=== PATIENT | male | born 2000 ===

== ENCOUNTER 2025-03-07 13:26 | Inpatient (IN) | payer SELFPAY ==
--- OUTSIDE RECORDS SUMMARY | 2025-03-06 17:35 | XMS_ITS | Encounter Summary ---
Author Organization [employer] Address [address] [place] [address] Care Team Providers Care Seed Analyst Name Role Phone Physician, No Pcp Primary Care Provider Unavaila ble Reason for Visit * Reason Comments Psychiatric Evaluation Encounter Details Date Type Department Care Team (Late st Contact Info) Description 03/06/2025 5:35 PM EDT - 03/07/2025 1:[address] 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 determined (CMS/HCC V24, CMS/HCC V28) (Primary Dx); Suicidal ideation Discharge Disposition: Psychiatric Hospital Social History Tobacco Use Types Packs/Day Years Used Date Smoking Tobacco: Unknown Tobacco Cessation:Counseling Given: Not Answered Sex and Gender Information Value Date Recorded Sex Assigned at Not on file Legal Sex Male 5:21 PM EDT Gender Identity Not on file Sexual Orientation Not on file documented as of this encounter Last Filed Vital Signs Vital Sign Reading Time Taken Comments Blood Pressure 94/54 03/07/2025 6:16 AM EDT Pulse 58 03/07/2025 6:16 AM EDT Temperature 36.8 C (98.2 F) 03/07/2025 6:16 AM EDT Respiratory Rate 18 03/07/2025 6:16 AM EDT Oxygen Saturation 100% 03/07/2025 6:16 AM EDT Inhaled Oxygen Concentration - - Weight 68 kg (150 lb) 03/06/2025 9:33 PM EDT Height 175.3 cm (5' 9 ) 03/06/2025 9:33 PM EDT Body Mass Index 22.15 03/06/2025 9:33 PM EDT documented in this encounter Functional Status * Calculated C-SSRS Risk Score (Lifetime/Recent) Answer Date of Assessment Author Low Risk 03/06/2025 6:28 PM EDT Freddie Diaz RN * [place] Suicide Severity Rating Scale (Screener/Recent Self-Report) Question Answer Date of Assessment Author 1. Wish to be (Past 1 Month) Yes 6:28 PM EDT Jessica Diaz RN 2. Non-Specific Active Suici brady Thoughts (Past 1 Month) Yes 03/06/2025 6:28 PM EDT Red Diaz RN 3. Active Suicidal Ideation with any Methods (Not Plan) Without Intent to Act (Past 1 Month) No 03/06/2025 6:28 PM EDT Jessica Diaz RN 4. Active Suicidal Ideation with Some Intent to Act, Without Specific Plan (Past 1 Month) No 03/06/2025 6:28 PM EDT Jessica Diaz RN 5. Active Suicidal Ideation with Specific Plan and Intent (Past 1 Month) No 03/06/2025 6:28 PM EDT Jessica Diaz RN 6. Suicidal Behavior (Lifetime) No 6:28 PM EDT Jessica Diaz RN documented as of this encounter Discharge Disposition Disposition Code Departure Means Destination Comment [facility]iatric [facility] Patient [facility]. Section 12. Sent by bls documented in this encounter Progress Notes * Kristina Jesus - 03/07/2025 10:27 AM EDT BED FOUND - Patient accepted to [facility], unit M3, by Dr Romo for today 03/07/25; ETA set for 1:30pm. * Aye Vanessa MD - 03/07/2025 3:15 AM EDT Jerardo Reynolds This patient's care was signed out to me by the offgoing provider. Please see her/his note for further details regarding initial presentation, history of present illness, physical exam, and medical decision making. At time of signout, the following was pending: ED Course as of 03/07/25 0852 WedMar 07, 2025 0026 Crisis evaluated patient. Patient pending bed search. [OR] [address] Holloway: SI requesting to be killed Awaiting inpatient psych bed [EK] 0637 No acute needs during my shift. Patient's care was handed over to the oncoming provider. [EK] ED Course User Index [EK] Aye Vanessa MD [OR] Osmar Holloway MD Clinical Impressions as of 03/07/25 0852 Schizophrenia spectrum disorder with psychotic disorder type not yet determined ([facility] V24, [facility] V28) Suicidal ideation No orders to display Labs Reviewed COMPREHENSIVE METABOLIC PANEL - Abnormal Result Value Sodium 137 Potassium 3.7 Chloride 103 CO2 24 Anion Gap 10 Glucose 82 BUN 16 Creatinine 0.99 eGFR 108 BUN/Creatinine Ratio 16.2 Calcium 9.5 AST (SGOT) 36 ALT (SGPT) 81 (*) Alkaline Phosphatase 71 Total Protein 7.6 Albumin 4.2 Total Bilirubin 0.7 ACETAMINOPHEN LEVEL - Abnormal Acetaminophen Level <2.0 (*) SALICYLATE LEVEL - Abnormal Salicylate Level <1.7 (*) ETHANOL - Normal Ethanol Level 3 DRUG ABUSE SCREEN 8A PANEL, URINE - Normal Amphetamine Screen, Ur Negative Barbiturate Screen, Ur Negative Benzodiazepine Screen, Ur Negative Cocaine Screen, Ur Negative Opiate Screen, Ur Negative Cannabinoid (THC) Screen, Ur Negative Oxycodone Screen, Ur Negative Fentanyl, Ur Negative Narrative: Assay cutoffs: Amphetamines 1000 ng/mL Barbiturates 200 ng/mL Benzodiazepines 200 ng/mL Cocaine 300 ng/mL Fentanyl 1 ng/mL Opiates 300 ng/mL Oxycodone 100 ng/mL THC 50 ng/mL Semi-quantitative assay for screening purposes only. Unconfirmed screening result should not be used for non-medical purposes. *ALTERNATE METHOD CONFIRMATION DONE UPON REQUEST ONLY* BUPRENORPHINE SCREEN, URINE - Normal Buprenorphine Screen Urine Negative Narrative: Assay cutoff 5 ng/mL Semi-quantitative assay for screening purposes only. Unconfirmed screening result should not be used for non-medical purposes. *ALTERNATE METHOD CONFIRMATION DONE UPON REQUEST ONLY* PHENCYCLIDINE, URINE - Normal PCP Scrn, Ur Negative METHADONE SCREEN, URINE - Normal Methadone Screen, Urine Negative CBC AND DIFFERENTIAL Narrative: The following orders were created for panel order CBC and differential. Procedure Abnormality Status --------- ------ CBC auto differential[[id number]] Final result Please view results for these tests on the individual orders. CBC WITH AUTO DIFFERENTIAL WBC 4.8 RBC 4.70 Hemoglobin 14.0 Hematocrit 42.2 MCV 89.0 MCH 29.5 MCHC 33.2 RDW 11.5 Platelets 303 MPV 9.9 NRBC 0.0 NRBC Absolute 0.00 Neutrophils Relative 60.8 Lymphocytes Relative 29.2 Monocytes Relative 9.0 Eosinophils Relative 0.6 Basophils Relative 0.2 Immature Granulocytes Relative 0.2 Neutrophils Absolute 2.91 Lymphocytes Absolute 1.40 Monocytes Absolute 0.43 Eosinophils Absolute 0.03 Basophils Absolute 0.01 Immature Granulocytes Absolute 0.01 Clinical Impression(s): Final diagnoses: [F29] Schizophrenia spectrum disorder with psychotic disorder type not yet determined ([facility] V24,[facility] V28) [R45.851] Suicidal ideation Send to Specialty Department Previous Medications No medications on file ED Medication Administration from 03/06/2025 1721 to 03/07/2025 0852 Date/Time Order Dose Route Action Action by 03/06/20259 EDT hydrOXYzine pamoate (VISTARIL) capsule 25 mg 25 mg oral Given Freddie Diaz 03/06/2025 2239 EDT melatonin tablet 3 mg 3 mg oral Given Freddie Diaz 03/07/2025 0017 EDT acetaminophen (TYLENOL) tablet 1,000 mg 1,000 mg oral Given Freddie Bravo * Jessica Diaz RN - 03/06/2025 9:50 PM EDT Per medication hx, no active meds. Patient also denies any active medications. * Jessica Diaz RN - 03/06/2025 6:25 PM EDT Pt processed according to policy, belongings secured. Pt stating if I lie to the crisis people will it get me out of here sooner? Education provided regarding the importance of sharing accurate information in order to provide theappropriate care. Pt states he was in an argument with someone, and upon the police arriving he gave them a note thatsaid shoot me. Patient providing minimal information during assessment, states I don't really care what happens to me. Sitter at watch. * Myrna Perry RN - 03/06/2025 5:35 PM EDT Pt BIBA from home after having an argument at home with father, whom called the police. Per EMS, ptwrote on piece of paper to police justice to just shoot me. Pt came willingly to [facility]. [facility], ambulatory. * Osmar Holloway MD - 03/06/2025 5:21 PM EDT HPI Chief Complaint Patient presents with Psychiatric Evaluation 25-year-old male with a past medical history of depression presenting with suicidal ideation. Patient endorses feeling as though he does not want to wake up tomorrow. Patient endorsed to myself, and also requested some form of medication that he can inject inside of him to end his life. Patient endorses an incident at home earlier, that required the police to come. Patient endorses that he would like to be shot in the head. Patient denies any fever, chills, chest pain, abdominal pain, back pain, urinary or bowel symptoms, numbness or weakness in the upper or lower extremities. Review of systems otherwise negative. History provided by: Patient No data recorded Patient History Medical History[1] Surgical History[2] Family History[3] Social History Tobacco Use Smoking status: Unknown Smokeless tobacco: Not on file Substance Use Topics Alcohol use: Not on file Drug use: Defer Review of Systems Review of Systems Constitutional: Negative for chills and fever. HENT: Negative for rhinorrhea and sore throat. Eyes: Negative for pain. Respiratory: Negative for cough, choking, chest tightness, shortness of breath and wheezing. Cardiovascular: Negative for chest pain and leg swelling. Gastrointestinal: Negative for abdominal pain, constipation, diarrhea, nausea and vomiting. Genitourinary: Negative for dysuria, flank pain and urgency. Musculoskeletal: Negative for back pain and neck pain. Skin: Negative for rash. Neurological: Negative for dizziness, weakness, light-headedness, numbness and headaches. Psychiatric/Behavioral: Positive for suicidal ideas. Negative for behavioral problems. Physical Exam ED Triage Vitals [03/06/25 1741] Temp Heart Rate Resp BP 36.7 ??C (98.1 ??F) 75 18 (!) 147/77 SpO2 Temp Source Heart Rate Source Patient Position 99 % Oral Monitor Lying BP Location FiO2 (%) Right arm -- Physical Exam Constitutional: Appearance: Normal appearance. HENT: Head: Normocephalic. Mouth/Throat: Mouth: Mucous membranes are moist. Eyes: Extraocular Movements: Extraocular movements intact. Pupils: Pupils are equal, round, and reactive to light. Cardiovascular: Rate and Rhythm: Normal rate. Pulmonary: Effort: Pulmonary effort is normal. Breath sounds: Normal breath sounds. Abdominal: General: Abdomen is flat. There is no distension. Palpations: Abdomen is soft. There is no mass. Tenderness: There is no abdominal tenderness. There is no guarding or rebound. Musculoskeletal: General: No swelling, tenderness, deformity or signs of injury. Normal range of motion. Cervical back: Normal range of motion. Skin: General: Skin is warm. Capillary Refill: Capillary refill takes less than 2 seconds. Neurological: General: No focal deficit present. Mental Status: He is alert and oriented to person, place, and time. Psychiatric: Mood and Affect: Mood normal. ED Course & MDM ED Course as of 03/07/25 1635 WedMar 07, 2025 0026 Crisis evaluated patient. Patient pending bed search. [OR] [address] Holloway: SI requesting to be killed Awaiting inpatient psych bed [EK] 0637 No acute needs during my shift. Patient's care was handed over to the oncoming provider. [EK] ED Course User Index [EK] Aye Vanessa MD [OR] Osmar Holloway MD Clinical Impressions as of 03/07/25 1635 Schizophrenia spectrum disorder with psychotic disorder type not yet determined (CMS/HCC V24, CMS/[facility] V28) Suicidal ideation Medical Decision Making Based on this clinical presentation, this is concerning for suicidal ideation. Patient denies any symptomatic complaints, vital stable, and has clear and thoughtful speech. Patient is alert and oriented, and shows capacity. Patient CBC within normal limits. CMP within normal limits. Drug screen negative. Ethanol negative. Salicylate negative. Tylenol negative. Patient pending crisis evaluation. Procedures Osmar Holloway MD 03/06/251925 [1] History reviewed. No pertinent past medical history. [2] History reviewed. No pertinent surgical history. [3] No family history on file. 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 Behavioral Health Services - Crisis Assessment Important times Time of arrival: 03/06/25 1721 Time of referral: 03/06/25 192 Time of readiness: 03/06/25 1947 Time assessment started: 03/06/252099 Time of disposition: 03/06/252199 Location: [facility] ED Consulted case with: Rima Viera LCSW Insurance information: Insurance: No Insurance Eligibility Verified by: JOSE Reis Reason for Consultation / Presenting Problem: Jerardo Reynolds is being seen today for a consultive service at the request of Osmar Holloway MD to assess risk and identify appropriate level of care. Patient is a 25 year old Male being assessed by Behavioral Health due to suicide ideation with a plan to get shot in the head. Patient reports that he want to end it all, he no longer want to be here. The patient reports that he had a verbal altercation with his father over a argueta that was left in the sink and as the altercation continues his father called the police to intervene. When the police arrived at his home, the patient reports that he asked the police to shoot him in the head and make it look like an accident. Patient was observed laughing various point throughoutthe assessment. The patient reports that he lives at home with his parents and 2 younger siblings ages 23 and 10. The patient reports that for the past 6 years his life have been a waste. He ran awayfrom home multiple times with no money or plan. He reports that in the past year he has applied forover 4,000 jobs but he never followed up with them. Patient reports that he missed his court date last for an aggravated assault charge. Patient reports that he has a history of mental health disorders and listed them all. At the time of assessment the patient continues to endorse suicide with a plan to get a high dose of sedatives or anesthesia any thing that will be effective because he don't want to be a vegetable . Patient reports that he does not have a girlfriend and no children. He also reports that he believed he was sterilized in middle school. Patient reports his home address as [address] [place] [address] and a contact phone number [phone]. Patient refused to provide his parent name and contact information. Phone call to [facility] Based on a phone call to [facility] the patient was last seen and assessed by their office in November 2024. In November the patient was seen due to inappropriate behavior in the home. He was diagnosed with schizophrenia by [facility]. Today co-response responded to the patient's residence. [facility] will fax over the assessme nt/interaction from today. The [facility] assessment found that the patient appears to be struggling with emotional and behavioral dysregulation secondary to discord with his father exacerbated by lack ofadaptive coping skills, lack of distress tolerance skills, and lack of current providers to work onexpanding his repertoire of adaptive coping skills. History of Present Illness: Jerardo is a 25 y.o. male with Chief Complaint Patient presents with Psychiatric Evaluation Social/Educational History: Guardian - if Yes, provide contact information: n/a [place] Status: n/a State Agency Involvement: n/a Aayush's Order: n/a Marital Status: Single Alternative Placement Details: None Reported Living Situation for patient: Parent/Guardian Household Members/Age: parents, mother, father, and 2 brothers Friendships/Family/Social Peer Support/Relationships: None Reported Highest level of education: Patient reports completing courses at [employer], [employer] and [employer]. Comments (Include Learning Needs): None Reported Occupation: Currently unemployed Employment/Extracurricular Activities/Hobbies: Unemployed Limitations of Daily Activities: None Reported Strengths/Supports: Patient can advocated for his needs. Collaterals, contact information, and engagement level: Therapist: None Reported Psychiatrist: None Reported PCP: None Reported Family: None Reported Other: None Reported Mental Status Speech: WNL Eye Contact: WNL Motor Activity: WNL Mood: WNL Affect: Appropriate Sleep: Poor Appetite: Poor Memory: WNL Attention / Concentration: WNL Behavior: Cooperative and Restless Appearance: Hallucinations: None Delusions: None Thought Content: WNL SI: Presence HI: Denied Thought Process: WNL Orientation Impairment: None Insight: WNL Judgment: WNL Impulse Control: WNL Substance Use History (Including family history): Cannabinoid Utox Results: Negative Substance Use Treatment History: None Reported Mental Health Treatment History: Outpatient Mental Health Treatment: Patient was assessed by [facility] in November 2024 Previous or Current Psychological Diagnosis: Schizophrenia Prior Psychiatric Hospitalizations/Residential Treatment Facilities: Patient reports being inpatient in [place], [place] Other Comments Regarding Mental Health Treatment History: Patient reports Mental Health Concerns in Family: Patient reports that his father probably has mental illness but was never diagnosed. Trauma History: None Reported Medications: Scheduled Meds: MEDSSCHEDULED[1] Continuous Infusions: MEDSCONTINUOUS[2] PRN Meds: MEDSPRN[3] None Reported Risk Assessment: Self-Harm: None Suicidal Behavior: Ideation and Plan Homicidal Behavior: None Physical Assault: None Physical Aggression: None Property Damage: None Verbal Aggression: None Family history of suicide: None Reported Protective Factors: Patient is help seeking Patient has access to community resources - [facility] Patient has safe living environment Patient lives with parents Risk Factors: Patient has limited coping skills Patient endorsed suicide with plan to get shot by police Patient has history of mental health illness Patient is not currently being treated for Schizophrenia Patient's insurance in inactive Suicide Risk: Based on patient's history and current presentation, their level of risk for intentional lethal harm is considered High Safety Plan Completed: yes Patient will be going inpatient for safety. Interventions: Safety assessment, Motivational interviewing, active listening, empathetic listening, brief counseling, psychoeducation, support, safety planning Response to interventions: Patient responded well to the intervention; he was calm, cooperative, and welcomed additional help. DSM-5TR Diagnosis: F29 Unspecified Schizophrenia Spectrum and other Psychotic Disorder Plan: Based on the above information it is my clinical opinion that, the patient would benefit from a involuntary inpatient psychiatric admission for safety and containment, mood stabilization, psychiatricmedication evaluation, diagnostic clarification, an opportunity to engage in a therapeutic treatment through individual and group counseling to develop adaptive coping/symptoms management skills and assistance in accessing community resources at discharge. Recommendations were discussed with requesting provider. It was a pleasure to assist Jerardo Housermolly here at [facility]. This report is written and finalized by: Fitz Mathis LCSW Behavioral Health Specialist [facility] (Tel): [phone] / : [phone] [1] melatonin, 3 mg, oral, Once [2] [3] documented in this encounter Plan of Treatment Not on file documented as of this encounter Procedures Procedure Name Priority Date/Time Associated Diagnosis Comments CBC WITH AUTO DIFFERENTIAL STAT 03/06/2025 6:23 PM EDT CBC AND DIFFERENTIAL STAT 03/06/2025 6:23 PM EDT ETHANOL STAT 03/06/2025 6:23 PM EDT ACETAMINOPHEN LEVEL STAT 03/06/2025 6 :23 PM EDT SALICYLATE LEVEL STAT 03/06/2025 6:23 PM EDT COMPREHENSIVE METABOLIC PANEL STAT 03/06/2025 6:23 PM EDT DRUG ABUSE SCREEN 8A PANEL, URINE STAT 03/06/2025 6:07 PM EDT BUPRENORPHINE SCREEN, URINE STAT 03/06/2025 6:07 PM EDT METHADONE SCREEN, URINE STAT 03/06/2025 6:07 PM EDT PHENCYCLIDINE, URINE STAT 03/06/2025 6:07 PM EDT documented in this encounter Results * CBC auto differential (03/06/2025 6:23 PM EDT) [facility] WBC 4.8 4.8 - 10.8 K/mcL LAB HEMETOLOGY METHOD 03/06/2025 6:49 PM EDT [facility] RBC 4.70 4.50 - 5.50 M/mcL LAB HEMETOLOGY METHOD 03/06/2025 6:49 PM EDT [facility] Hemoglobin 14.0 13.5 - 17.5 g/dL LAB HEMETOLOGY METHOD 03/06/2025 6:49 PM EDT [facility] Hematocrit 42.2 42.0 - 54.0 % LAB HEMETOLOGY METHOD 03/06/2025 6:49 PM EDT [facility] MCV 89.0 79.0 - 98.0 FL LAB HEMETOLOGY METHOD 03/06/2025 6:49 PM EDT [facility] MCH 29.5 27.0 - 32.0 pcg LAB HEMETOLOGY METHOD 03/06/2025 6:49 PM EDT [facility] MCHC 33.2 32.0 - 37.0 g/dL LAB HEMETOLOGY METHOD 03/06/2025 6:49 PM EDT [facility] RDW 11.5 11.0 - 15.0 % LAB HEMETOLOGY METHOD 03/06/2025 6:49 PM EDT [facility] Platelets 303 130 - 400 K/mcL LAB HEMETOLOGY METHOD 03/06/2025 6:49 PM EDT [facility] MPV 9.9 7.0 - 11.0 FL LAB HEMETOLOGY METHOD 03/06/2025 6:49 PM EDT [facility] NRBC 0.0 <1.0 % LAB HEMETOLOGY METHOD 03/06/2025 6:49 PM EDT [facility] NRBC Absolute 0.00 <0.10 K/mcL LAB HEMETOLOGY METHOD 03/06/2025 6:49 PM EDT [facility] Neutrophils Relative 60.8 % LAB HEMETOLOGY METHOD 03/06/2025 6:49 PM EDT [facility] Lymphocytes Relative 29.2 % [facility]/06[facility] Monocytes Relative 9.0 % [facility]EM[facility]OLOGY [facility] 03/06[facility]25 6:[facility] Eosinophils Relative 0.6 % LAB HEMETOLOGY METHOD 03/06/2025 6:[facility] Basophils Relative 0.2 % LAB HEMETOLOGY METHOD 03/06/2025 6:49 PM [facility] Immature Granulocytes Relative 0.2 % LAB HEMETOLOGY METHOD 03/06/2025 6:[facility] Neutrophils Absolute 2.91 1.50 - 7.00 K/mcL LAB HEMETOLOGY METHOD 03/06/2025 6:49 PM EDT [facility] Lymphocytes Absolute 1.40 1.00 - 5.00 K/mcL LAB HEMETOLOGY METHOD 03/06/2025 6:[facility] Monocytes Absolute 0.43 0.20 - 1.00 K/mcL LAB HEMETOLOGY METHOD 03/06/2025 6:49 [facility] Eosinophils Absolute 0.03 0.00 - 0.50 K/mcL LAB HEMETOLOGY METHOD 03/06/2025 6:49 PM EDT [facility] Basophils Absolute 0.01 0.00 - 0.20 K/[facility] LAB HEMETOLOGY METHOD 03/06/2025 6:49 PM EDT [facility] Immature Granulocytes Absolute 0.01 0.00 - 0.03 K/[facility] LAB HEMETOLOGY METHOD 03/06/2025 6:49 PM EDT [facility] Blood Venous blood specimen / Unknown Venipuncture / Unknown 03/06/2025 6:23 PM EDT 03/06/2025 6:36 PM EDT us Osmar Holloway MD LAB BLOOD ORDERABLES Final Result Performing Organization Address [facility]/ZIP Co de Phone Number [facility] [address] [place] [address], * (ABNORMAL) Salicylate level (03/06/2025 6:23 PM EDT) Salicylate Level <1.7(L) 2.0 - 29.0 mg/dL LAB CHEMISTRY METHOD 03/06/2025 7:19 PM EDT [facility] Blood Venous blood specimen / Unknown Venipuncture / Unknown 03/06/2025 6:23 PM EDT 03/06/2025 6:36 PM EDT us Osmar Holloway MD LAB BLOOD ORDERABLES Final Result Performing Organization Address City/[facility]/ZIP Co de Phone Number [facility] [address] [place] [address], * (ABNORMAL) Acetaminophen level (03/06/2025 6:23 PM EDT) Acetaminophen Level <2.0(L) 10.0 - 30.0 mcg/mL LAB CHEMISTRY METHOD 03/06/2025 7:33 PM EDT [facility] Blood Venous blood specimen / Unknown Venipuncture / Unknown 03/06/2025 6:23 PM EDT 03/06/2025 6:36 PM EDT us Osmar Holloway MD LAB BLOOD ORDERABLES Final Result Performing Organization Address [facility]/ZIP Co de Phone Number [facility] [address] [place] [address], [place] [phone] * Ethanol (03/06/2025 6:23 PM EDT) Pathologist [facility] Ethanol Level 3 0 - 10 mg/dL LAB CHEMISTRY METHOD 03/06/2025 7:19 PM EDT [facility] Blood Venous blood specimen / Unknown Venipuncture / Unknown 03/06/2025 6:23 PM EDT 03/06/2025 6:36 PM EDT us Osmar Holloway MD LAB BLOOD ORDERABLES Final Result Performing Organization Address [facility]/ZIP Co de Phone Number [facility] [address] [place] [address], [place] [phone] * (ABNORMAL) Comprehensive metabolic panel (03/06/2025 6:23 PM EDT) Sodium 137 133 - 145 mmol/L LAB CHEMISTRY METHOD 03/06/2025 7:19 PM EDT [facility] Potassium 3.7 3.5 - 5.5 mmol/L LAB CHEMISTRY METHOD 03/06/2025 7:19 PM EDT [facility] Chloride 103 96 - 110 mmol/L LAB CHEMISTRY METHOD 03/06/2025 7:19 PM EDT [facility] CO2 24 21 - 32 mmol/L LAB CHEMISTRY METHOD 03/06/2025 7:19 PM EDT [facility] Anion Gap 10 3 - 11 LAB CHEMISTRY METHOD 03/06/2025 7:19 PM EDT [facility] Glucose 82 70 - 100 mg/dL LAB CHEMISTRY METHOD 03/06/2025 7:19 PM [facility] BUN 16 5 - 25 mg/dL LAB CHEMISTRY METHOD 03/06/2025 7:19 PM [facility] Creatinine 0.99 0.70 - 1.30 mg/dL LAB CHEMISTRY METHOD 03/06/2025 7:19 PM [facility] eGFR 108 >=60 mL/min/1. 73m2 LAB CHEMISTRY METHOD 03/06/2025 7:19 PM [facility] Comment:Calculation based on the Chronic Kidney Disease Epidemiology Collaboration (CKD-EPI) equation refit without adjustment for race. BUN/Creatinine Ratio 16.2 LAB CHEMISTRY METHOD 03/06/2025 7:19 PM [facility] Calcium 9.5 8.5 - 10.5 mg/dL LAB CHEMISTRY METHOD 03/06/2025 7:19 PM [facility] AST (SGOT) 36 10 - 42 unit/L LAB CHEMISTRY METHOD 03/06/2025 7:19 PM [facility] ALT (SGPT) 81(H) 10 - 60 unit/L LAB CHEMISTRY METHOD 03/06/2025 7:19 PM [facility] Alkaline Phosphatase 71 42 - 121 unit/L LAB CHEMISTRY METHOD 03/06/2025 7:19 PM [facility] Total Protein 7.6 6.0 - 8.0 g/dL LAB CHEMISTRY METHOD 03/06/2025 7:19 PM [facility] Albumin 4.2 3.2 - 5.0 g/dL LAB CHEMISTRY METHOD 03/06/2025 7:19 PM [facility] Total Bilirubin 0.7 0.0 - 1.4 mg/dL LAB CHEMISTRY METHOD 03/06/2025 7:19 PM [facility] Blood Venous blood specimen / Unknown Venipuncture / Unknown 03/06/2025 6:23 PM EDT 03/06/2025 6:36 PM EDT us Osmar Holloway MD LAB BLOOD ORDERABLES Final Result Performing Organization Address [facility]/ZIP Co de Phone Number [facility] [address] [place] [address], [place] [phone] * Methadone, urine (03/06/2025 6:07 PM EDT) Methadone Screen, Urine Negative Negative LAB CHEMISTRY METHOD 03/06/2025 6:55 PM EDT [facility] Comment: Assay cutoff 300 ng/mL Semi-quantitative assay for screening purposes only. Unconfirmed screening result should not be used for non-medical purposes. *ALTERNATE METHOD CONFIRMATION DONE UPON REQUEST ONLY* Urine Urine specimen obtained by clean catch procedure / Unknown Non-blood Collection / Unknown 03/06/2025 6:07 PM EDT 03/06/2025 6:20 PM EDT us Osmar Holloway MD LAB URINE ORDERABLES Final Result Performing Organization Address [facility] de Phone Number [facility] [address] [place] [address], [place] [phone] * Phencyclidine, urine (03/06/2025 6:07 PM EDT) PCP Scrn, Ur Negative Negative LAB CHEMISTRY METHOD 03/06/2025 6:55 PM EDT [facility] Comment: Assay cutoff 25 ng/mL Semi-quantitative assay for screening purposes only. Unconfirmed screening result should not be used for non-medical purposes. *ALTERNATE METHOD CONFIRMATION DONE UPON REQUEST ONLY* Urine Urine specimen obtained by clean catch procedure / Unknown Non-blood Collection / Unknown 03/06/2025 6:07 PM EDT 03/06/2025 6:20 PM EDT us Osmar Holloway MD LAB URINE ORDERABLES Final Result Performing Organization Address [facility]/ZIP Co de Phone Number [facility] [address] [place] [address], [place] [phone] * Buprenorphine screen, urine (03/06/2025 6:07 PM EDT) Buprenorphine Screen Urine Negative Negative LAB CHEMISTRY METHOD 03/06/2025 6:55 PM EDT [facility] Urine Urine specimen obtained by clean catch procedure / Unknown Non-blood Collection / Unknown 03/06/2025 6:07 PM EDT 03/06/2025 6:20 PM EDT Narrative [facility] - 03/06/2025 6:55 PM EDT Assay cutoff 5 ng/mL Semi-quantitative assay for screening purposes only. Unconfirmed screening result should not be used for non-medical purposes. *ALTERNATE METHOD CONFIRMATION DONE UPON REQUEST ONLY* Osmar Holloway MD LAB URINE ORDERABLES Final Result Performing Organization Address [facility] Co de Phone Number [facility] [address] [place] [address], [place] [phone] * Drug abuse screen 8a panel, urine (03/06/2025 6:07 PM EDT) [facility] Amphetamine Screen, Ur Negative Negative LAB CHEMISTRY METHOD 03/06/2025 6:55 PM EDT [facility] Comment:Certain OTC medicati ons containing ephedrine, phenylephrine, pseudoephedrine and phenylpropanolamine can cause false positive results. Barbiturate Screen, Ur Negative Negative LAB CHEMISTRY METHOD 03/06/2025 6:55 PM EDT [facility] Benzodiazepine Screen, Ur Negative Negative LAB CHEMISTRY METHOD 03/06/2025 6:55 PM EDT [facility] Cocaine Screen, Ur Negative Negative LAB CHEMISTRY METHOD 03/06/2025 6:55 PM EDT [facility] Opiate Screen, Ur Negative Negative LAB CHEMISTRY METHOD 03/06/2025 6:55 PM EDT [facility] Cannabinoid (THC) Screen, Ur Negative Negative LAB CHEMISTRY METHOD 03/06/2025 6:55 PM EDT [facility] Comment:Specimens from patie nts taking pantoprazole sodium (Protonix) have been shown to produce false positive results. Oxycodone Screen, Ur Negative Negative LAB CHEMISTRY METHOD 03/06/2025 6:55 PM EDT [facility] Fentanyl, Ur Negative Negative LAB CHEMISTRY METHOD 03/06/2025 6:55 PM EDT [facility] Urine Urine specimen obtained by clean catch procedure / Unknown Non-blood Collection / Unknown 03/06/2025 6:07 PM EDT 03/06/2025 6:20 PM EDT Narrative [facility] - 03/06/2025 6:55 PM EDT Assay cutoffs: Amphetamines 1000 ng/mL Barbiturates 200 ng/mL Benzodiazepines 200 ng/mL Cocaine 300 ng/mL Fentanyl 1 ng/mL Opiates 300 ng/mL Oxycodone 100 ng/mL THC 50 ng/mL Semi-quantitative assay for screening purposes only. Unconfirmed screening result should not be used for non-medical purposes. 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 V24, [facility] V28)- Primary Suicidal ideation documented in this encounter Administered Medications Inactive Administered Medications - up to 3 most recent administrations Medication Order MAR Action Action Date Dose Rate Site acetaminophen (TYLENOL) tablet 1,000 mg 1,000 mg, oral, Once, On Wed03/06/25 at 2313, For 1 dose Given 03/07/2025 12:17 AM EDT 1,000 mg hydrOXYzine pamoate (VISTARIL) capsule 25 mg 25 mg, oral, Once, On Wed03/06/25 at 7, For 1 dose Given 03/06/2025 9:29 PM EDT 25 mg melatonin tablet 3 mg 3 mg, oral, Once, On Wed03/06/25 at 2150, For 1 dose Given 03/06/2025 10:39 PM EDT 3 mg documented in this encounter Active and Recently Administered Medications Times are shown in EDT. Scheduled Medication Order 03/05/2025 03/06/2025 03/07/2025 acetaminophen (TYLENOL) tablet 1,000 mg (COMPLETED) 1,000 mg, oral, Once, On Wed03/06/25 at 2313, For 1 dose 0017 (Given - Provid er: Emily Bravo RN) hydrOXYzine pamoate (VISTARIL) capsule 25 mg (COMPLETED) 25 mg, oral, Once, On Wed03/06/25 at 2036, For 1 dose 2128 (Given - Provider: Jessica Diaz RN) melatonin tablet 3 mg (COMPLETED) 3 mg, oral, Once, On Wed03/06/25 at 2150, For 1 dose 2238 (Given - Provider: Jessica Diaz RN) documented in this encounter Orders Consult Count Last Ordered Date First Orde red Date IP CONSULT TO BUILDING CONSTRUCTION TEACHER 1 03/06/2025 documented in this encounter Care Teams Seed Analyst Relationship Specialty Start Date End Date Physician, No Pcp PCP - General 03/06/25 documented as of this encounter
[2025-03-07 15:20] VITALS: BP 124/58; PULSE 84; RESP 16; TEMP 36.6
--- OUTSIDE RECORDS SUMMARY | 2025-03-07 17:08 | XMS_ITS | Clinical Summary ---
Author Organization [facility] Address [address] [place] [address] Phone Care Team Providers Care Heat Plant Specialist Name Role Phone Physician, No Pcp Primary Care Provider Unavaila ble Allergies No known active allergies Medications No known medications Encounters Date Type Department Care Team Description 03/06/2025 5:35 PM EDT - 03/07/2025 1:[address] [facility] [address] [place] [address] Osmar Holloway MD Kokkinos, Erika, MD Wyman, Tim, MD Schizophrenia spectrum disorder with psychotic disorder type not yet determined ([facility] V24, [facility] V28) (Primary Dx); Suicidal ideation Discharge Disposition: [facility] from Last 3 Months Social History Tobacco Use Types Packs/Day Years Used Date Smoking Tobacco: Unknown Tobacco Cessation:Counseling Given: Not Answered Sex and Gender Information Value Date Recorded Sex Assigned at Not on file Legal Sex Male 5:21 PM EDT Gender Identity Not on file Sexual Orientation Not on file Obstetrics History Last Filed Vital Signs Vital Sign Reading [...] Mass Index 22.15 03/06/2025 9:33 PM EDT Plan of Treatment Health Maintenance Due Date Last Done Comments Hepatitis B Vaccines (1 of 3 - 19+ 3-dose series) 2018 Depression Screening 05/24/2024 COVID-19 Vaccine (3 - 2024- season) 2025 10/07/2020, 09/09/2020 Influenza Vaccine (#1) 2025 04/16/2017 HIV Screening 03/06/2025 Hepatitis C Screening 03/06/2025 Social Influencers of Health Screening 03/06/2025 DTaP,Tdap,and Td Vaccines (8 - Td or Tdap) 10/29/2030 10/29/2020, 01/28/2010, 02/23/2003, Additional history exists RSV Immunization Adult Patients (1 - 1-dose 75+ series) 2074 HIB Vaccines Completed 05/03/2000, 07/22, 1999, Additional history exists IPV Vaccines Completed 02/23/2003, 10/1999, 1999, Additional history exists MMR Vaccines Completed 02/23/2003, 01/28/2000 Hepatitis A Vaccines Completed 04/06/2013, 02/12/20 12 Meningococcal ACWY Vaccine Completed 05/07/2016, Varicella Vaccines Completed 05/26/2016, 0 01/17/2007, 01/28/2000 HPV Vaccines Completed 11/05/2016, 06/25, 05/07/2016 Meningococcal B Vaccine Aged Out No l onger eligible based on patient's age to complete this topic Pneumococcal Vaccine: Pediatrics (0 to 5 Years) and At-Risk Patients (6 to 49 Years) Aged Out No longer eligible based on patient's age to complete this topic RSV Immunization Patients Under 20 months Aged Out No longer eligible based on patient's age to complete this topic Procedures Procedure Name Priority Date/Time Associated Diagnosis Comments CBC WITH AUTO DIFFERENTIAL STAT 03/06/2025 6:23 PM EDT SALICYLATE LEVEL STAT 03/06/2025 6:23 PM EDT ACETAMINOPHEN LEVEL STAT 03/06/2025 6 :23 PM EDT ETHANOL STAT 03/06/2025 6:23 PM EDT COMPREHENSIVE METABOLIC PANEL STAT 03/06/2025 6:23 PM EDT CBC AND DIFFERENTIAL STAT 03/06/2025 6:23 PM EDT METHADONE SCREEN, URINE STAT 03/06/2025 6:07 PM EDT PHENCYCLIDINE, URINE STAT 03/06/2025 6:07 PM EDT BUPRENORPHINE SCREEN, URINE STAT 03/06/2025 6:07 PM EDT DRUG ABUSE SCREEN 8A PANEL, URINE STAT 03/06/2025 6:07 PM EDT from Last 3 Months Results * CBC auto differential (03/06/2025 6:23 PM EDT) [facility] WBC 4.8 4.8 - 10.8 K/mcL LAB HEMETOLOGY METHOD 03/06/2025 6:49 PM EDT [facility] RBC 4.70 4.50 - 5.50 M/mcL LAB HEMETOLOGY METHOD 03/06/2025 6:49 PM EDT [facility] Hemoglobin 14.0 13.5 - 17.5 g/dL LAB HEMETOLOGY METHOD 03/06/2025 6:49 PM EDT [facility] Hematocrit 42.2 42.0 - 54.0 % LAB HEMETOLOGY METHOD 03/06/2025 6:49 PM EDT [facility] MCV 89.0 79.0 - 98.0 FL LAB HEMETOLOGY METHOD 03/06/2025 6:49 PM EDT [facility] MCH 29.5 27.0 - 32.0 pcg LAB HEMETOLOGY METHOD 03/06/2025 6:49 PM EDT [facility] MCHC 33.2 32.0 - 37.0 g/dL LAB HEMETOLOGY METHOD 03/06/2025 6:49 PM EDT [facility] RDW 11.5 11.0 - 15.0 % LAB HEMETOLOGY METHOD 03/06/2025 6:49 PM EDT [facility] Platelets 303 130 - 400 K/mcL LAB HEMETOLOGY METHOD 03/06/2025 6:49 PM EDT [facility] MPV 9.9 7.0 - 11.0 FL LAB HEMETOLOGY METHOD 03/06/2025 6:49 PM EDT [facility] NRBC 0.0 <1.0 % LAB HEMETOLOGY METHOD 03/06/2025 6:49 PM EDT [facility] NRBC Absolute 0.00 <0.10 K/mcL LAB HEMETOLOGY METHOD 03/06[facility]25 [facility] Neutrophils Relative 60.8 % LAB HEMETOLOGY METHOD 03/06/2025 6:49 PM EDT [facility] Lymphocytes Relative 29.2 % LAB HEMETOLOGY METHOD 03/06/2025 6:49 PM EDT [facility] Monocytes Relative 9.0 % LAB HEMETOLOGY METHOD 03/06[facility]2025 6[facility] Eosinophils Relative 0.6 % LAB HEMETOLOGY METHOD 03/06/2025 6:49 PM EDT [facility] Basophils Relative 0.2 % LAB HEMETOLOGY METHOD 03/06/2025 6:49 PM EDT [facility] Immature Granulocytes Relative 0.2 % LAB HEMETOLOGY METHOD 03/06/2025 6:49 PM EDT [facility] Neutrophils Absolute 2.91 1.50 - 7.00 K/mcL LAB HEMETOLOGY METHOD 03/06/2025 6:49 PM EDT [facility] Lymphocytes Absolute 1.40 1.00 - 5.00 K/mcL LAB HEMETOLOGY METHOD 03/06/2025 6:49 PM EDT [facility] Monocytes Absolute 0.43 0.20 - 1.00 K/[facility] LAB HEMETOLOGY METHOD 03/06/2025 6:49 PM EDT [facility] Eosinophils Absolute 0.03 0.00 - 0.50 K/[facility] HEMETOLOGY METHOD 03/06/2025 6:49 PM EDT [facility] Basophils Absolute 0.01 0.00 - 0.20 K/[facility] HEMETOLOGY METHOD 03/06/2025 6:49 PM EDT [facility] Immature Granulocytes Absolute 0.01 0.00 - 0.03 K/[facility] HEMETOLOGY METHOD 03/06/2025 6:49 PM EDT [facility] Blood Venous blood specimen / Unknown Venipuncture / Unknown 03/06/2025 6:23 PM EDT 03/06/2025 6:36 PM EDT us Osmar Holloway MD LAB BLOOD ORDERABLES Final Result [facility] [address] [place] [address], [place] [phone] * Ethanol (03/06/2025 6:23 PM EDT) Ethanol Level 3 0 - 10 mg/dL LAB CHEMISTRY METHOD 03/06/2025 7:19 PM EDT [facility] Blood Venous blood specimen / Unknown Venipuncture / Unknown 03/06/2025 6:23 PM EDT 03/06/2025 6:36 PM EDT us Osmar Holloway MD LAB BLOOD ORDERABLES Final Result [facility] [address] [place] [address], [place] [phone] * (ABNORMAL) Acetaminophen level (03/06/2025 6:23 PM EDT) Acetaminophen Level <2.0(L) 10.0 - 30.0 mcg/mL LAB CHEMISTRY METHOD 03/06/2025 7:33 PM EDT [facility] Blood Venous blood specimen / Unknown Venipuncture / Unknown 03/06/2025 6:23 PM EDT 03/06/2025 6:36 PM EDT us Osmar Holloway MD LAB BLOOD ORDERABLES Final Result Performing Organization Address City/[facility]/ZIP Co de Phone Number [facility] [address] [place] [address], [place] [phone] * (ABNORMAL) Salicylate level (03/06/2025 6:23 PM EDT) Salicylate Level <1.7(L) 2.0 - 29.0 mg/dL LAB CHEMISTRY METHOD 03/06/2025 7:19 PM EDT [facility] Blood Venous blood specimen / Unknown Venipuncture / Unknown 03/06/2025 6:23 PM EDT 03/06/2025 6:36 PM EDT us Osmar Holloway MD LAB BLOOD ORDERABLES Final Result Performing Organization Address City/[facility]/ZIP Co de Phone Number [facility] [address] [place] [address], [place] [phone] * (ABNORMAL) Comprehensive metabolic panel (03/06/2025 6:23 PM EDT) Sodium 137 133 - 145 mmol/L LAB CHEMISTRY METHOD 03/06/2025 7:19 PM EDT [facility] Potassium 3.7 3.5 - 5.5 mmol/L LAB CHEMISTRY METHOD 03/06/2025 7:19 PM EDT [facility] Chloride 103 96 - 110 mmol/L LAB CHEMISTRY METHOD 03/06/2025 7:19 PM [facility] CO2 24 21 - 32 mmol/L LAB CHEMISTRY METHOD 03/06/2025 7:19 PM [facility] Anion Gap 10 3 - 11 LAB CHEMISTRY METHOD 03/06/2025 7:19 PM [facility] Glucose 82 70 - 100 mg/dL LAB CHEMISTRY METHOD 03/06/2025 7:19 PM [facility] BUN 16 5 - 25 mg/dL LAB CHEMISTRY METHOD 03/06/2025 7:19 PM [facility] Creatinine 0.99 0.70 - 1.30 mg/dL LAB CHEMISTRY METHOD 03/06/2025 7:19 PM [facility] eGFR 108 >=60 mL/min/1. 73m2 LAB CHEMISTRY METHOD 03/06/2025 7:19 PM [facility] Comment:Calculation based on the Chronic Kidney Disease Epidemiology Collaboration (CKD-EPI) equation refit without adjustment for race. BUN/Creatinine Ratio 16.2 LAB CHEMISTRY METHOD 03/06/2025 7:19 PM [facility] Calcium 9.5 8.5 - 10.5 mg/dL LAB CHEMISTRY METHOD 03/06/2025 7:19 PM [facility] AST (SGOT) 36 10 - 42 unit/L LAB CHEMISTRY METHOD 03/06/2025 7:19 PM [facility] ALT (SGPT) 81(H) 10 - 60 unit/L LAB CHEMISTRY METHOD 03/06/2025 7:19 PM [facility] Alkaline Phosphatase 71 42 - 121 unit/L LAB CHEMISTRY METHOD 03/06/2025 7:19 PM [facility] Total Protein 7.6 6.0 - 8.0 g/dL LAB CHEMISTRY METHOD 03/06/2025 7:19 PM [facility] Albumin 4.2 3.2 - 5.0 g/dL LAB CHEMISTRY METHOD 03/06/2025 7:19 PM EDT [facility] Total Bilirubin 0.7 0.0 - 1.4 mg/dL LAB CHEMISTRY METHOD 03/06/2025 7:19 PM EDT [facility] Blood Venous blood specimen / Unknown Venipuncture / Unknown 03/06/2025 6:23 PM EDT 03/06/2025 6:36 PM EDT Osmar Holloway MD LAB BLOOD ORDERABLES Final Result [facility] [address] [place] [address], * Drug abuse screen 8a panel, urine (03/06/2025 6:07 PM EDT) Amphetamine Screen, Ur Negative Negative LAB CHEMISTRY METHOD 03/06/2025 6:55 PM EDT [facility] Comment:Certain OTC medicati ons containing ephedrine, phenylephrine, pseudoephedrine and phenylpropanolamine can cause false positive results. Barbiturate Screen, Ur Negative Negative LAB CHEMISTRY METHOD 03/06/2025 6:55 PM EDT [facility] Benzodiazepine Screen, Ur Negative Negative LAB CHEMISTRY METHOD 03/06/2025 6:55 PM EDT [facility] Cocaine Screen, Ur Negative Negative LAB CHEMISTRY METHOD 03/06/2025 6:55 PM EDT [facility] Opiate Screen, Ur Negative Negative LAB CHEMISTRY METHOD 03/06/2025 6:55 PM EDT [facility] Cannabinoid (THC) Screen, Ur Negative Negative LAB CHEMISTRY METHOD 03/06/2025 6:55 PM [facility] Comment:Specimens from patie nts taking pantoprazole sodium (Protonix) have been shown to produce false positive results. Oxycodone Screen, Ur Negative Negative LAB CHEMISTRY METHOD 03/06/2025 6:55 PM EDT [facility] Fentanyl, Ur Negative Negative LAB CHEMISTRY METHOD 03/06/2025 6:55 PM EDT [facility] Urine Urine specimen obtained by clean catch procedure / Unknown Non-blood Collection / Unknown 03/06/2025 6:07 PM EDT 03/06/2025 6:20 PM EDT Narrative [facility] - 03/06/2025 6:55 PM EDT Assay cutoffs: Amphetamines 1000 ng/mL Barbiturates 200 ng/mL Benzodiazepines 200 ng/mL Cocaine 300 ng/mL Fentanyl 1 ng/mL Opiates 300 ng/mL Oxycodone 100 ng/mL THC 50 ng/mL Semi-quantitative assay for screening purposes only. Unconfirmed screening result should not be used for non-medical purposes. *ALTERNATE METHOD CONFIRMATION DONE UPON REQUEST ONLY* us Osmar Holloway MD LAB URINE ORDERABLES Final Result Performing Organization Address [facility] de Phone Number [facility] [address] [place] [address], [place] [phone] * Buprenorphine screen, urine (03/06/2025 6:07 PM EDT) [facility] Signature Buprenorphine Screen Urine Negative Negative LAB CHEMISTRY METHOD 03/06/2025 6:55 PM EDT [facility] Urine Urine specimen obtained by clean catch procedure / Unknown Non-blood Collection / Unknown 03/06/2025 6:07 PM EDT 03/06/2025 6:20 PM EDT Narrative [facility] - 03/06/2025 6:55 PM EDT Assay cutoff 5 ng/mL Semi-quantitative assay for screening purposes only. Unconfirmed screening result should not be used for non-medical purposes. *ALTERNATE METHOD CONFIRMATION DONE UPON REQUEST ONLY* us Osmar Holloway MD LAB URINE ORDERABLES Final Result Performing Organization Address [facility]/ZIP Co de Phone Number [facility] [address] [place] [address], [place] [phone] * Methadone, urine (03/06/2025 6:07 PM EDT) Methadone Screen, Urine Negative Negative LAB CHEMISTRY METHOD 03/06/2025 6:55 PM EDT [facility] Comment: Assay cutoff 300 ng/mL [...] URINE ORDERABLES Final Result Performing Organization Address [facility]/ZIP Co de Phone Number [facility] [address] [place] [address], [place] [phone] * Phencyclidine, urine (03/06/2025 6:07 PM EDT) PCP Scrn, Ur Negative Negative LAB CHEMISTRY METHOD 03/06/2025 6:55 PM EDT [facility] Comment: Assay cutoff 25 ng/mL [...] URINE ORDERABLES Final Result Performing Organization Address City/[facility]/ZIP Co de Phone Number [facility] [address] [place] [address], [place] [phone] from Last 3 Months Care Teams Heat Plant Specialist Relationship Specialty Start Date End Date Physician, No Pcp PCP - General 03/06/25
--- OUTSIDE RECORDS SUMMARY | 2025-03-07 17:08 | XMS_ITS | Clinical Summary ---
Author Organization [facility] Address [address] [place] [address] Care Team Providers Care Marine Engineering Teacher Name Role Phone Unavailable Primary Care Provider Unavailabl e Source Comments PLEASE NOTE, if this patient is a minor, it may be UNLAWFUL to discuss sensitive information that is contained in these records (such as FAMILY PLANNING, MENTAL HEALTH or SUBSTANCE ABUSE) with the minor patient's parent or other person without the patient's specific authorization.[facility] Immunizations Immunization Administration Dates Next Due Moderna COVID-19 Vaccine, re d cap blue label, 12+ Primary Series 10/07/2020,09/09/2020 Social History Tobacco Use Types Packs/Day Years Used Date Smoking Tobacco: Never Assessed Social Connections Answer Date Recorded Social Connections and Isolation 0 09/09/2020 Financial Resource Strain Answer Date R ecorded Financial Resource Strain 0 2020 Stress Answer Date Recorded Stress 0 09/09/2020 Physical Activity Answer Date Recorded Physical Activity 0 09/09/2020 Food Insecurity Answer Date Recorded Food 0 09/09/2020 Transportation Needs Answer Date Record ed Transportation 0 09/09/2020 Housing Stability Answer Date Recorded Housing 0 09/09/2020 Safety and Environment Answer Date Enrrique rded Safety 0 09/09/2020 Utilities Answer Date Recorded Utilities 0 09/09/2020 Employment Answer Date Recorded Employment 0 09/09/2020 Sex and Gender Information Value Date Recorded Sex Assigned at Not on file Legal Sex Male 7:25 AM PDT Gender Identity Not on file Sexual Orientation Not on file Plan of Treatment Health Maintenance Due Date Last Done Comments Anxiety Screening 1999 Hepatitis C Screening 1999 Tobacco Screening 1999 HIV Screening 2014 Hypertension Screening (#1) 2017 Imm-DTaP/Tdap/Td (1 - Tdap) 2018 Imm-Hepatitis B (1 of 3 - 19 + 3-dose series) 2018 Alcohol and Drug Screen 05/24/2024 Depression Annual Screen 05/24/2024 [id number] ( season) 2025 021, 09/09/2020 Imm-Influenza (#1) 2025 Imm-HPV Completed 11/05/2016, 06/25, 05/07/2016 [facility] [address]
--- NOTE | 2025-03-07 17:50 | PC.ADMIT ---
Jerardo is a 25 y/o czech speaking male admitted from [facility] at 1340 on a CV with a dx of Schizophrenia and depression with SI. Pt was having an argument at home when the police arrived at his home. When the police arrived the pt gave them a note that said, ? shoot me.? Pt requested medications at [facility] that he could inject and not wake up from. Pt is A&O x3. Pt presented as hopeless describing the 8 years of treatment that he had that hasn?t helped him. Pt reports AH/VH, saying, ? I have had a living shadow in my room over my shoulder. It was telling me to kill my parents last year.? Pt says that he cut his hair hoping it would make it go away. Pt says when he showers it quiets them (AH). Pt also referenced that he believes that people could transmit thoughts. His thoughts were disorganized, and nonsensical at times. Pts speech was pressured, rapid and tangential. Pt says ?my sleep is horrible, I got 1.5 hrs of sleep in the past 2 days.? Pts tox screen was negative, he reported no substance use for the past 2 years. Pt reports a good appetite with no weight loss. Pt has no acute medical concerns noted or reported. Pt placed on 15 minute safety checks.
[2025-03-07 19:40] VITALS: BP 133/73; PULSE 81; RESP 16; TEMP 37.1; O2SAT 94
--- NOTE | 2025-03-08 08:19 | P.CONHOSP_ITS ---
History of Present Illness Data of Consult Service Date: 03/08/25 Primary Care Provider: Unknown Physician HPI Reason for consult: Medical consult 25-year-old male with a past medical history of depression in schizophrenia presented to [facility] with suicidal ideation with a plan to inject himself with medication. His initial blood work revealed a CBC which was within normal limits, CMP within normal limits no evidence of kidney or renal impairment, his drug screen was negative, alcohol was negative, salicylate and Tylenol were negative. He was evaluated by crisis and deemed to be appropriate for inpatient level of care. On exam patient is sleeping but awakens and answers questions. Denies any medical concerns. Review of Systems Review of Systems: Denies any shortness of breath, chest pain, headaches, dysuria, abdominal pain or discomfort, nausea, vomiting or diarrhea. PMFSH Social History Household Members: Family Household Members Other:: mom and dad Housing: House Do you presently have visiting nurse or other home services: No Patient Tobacco Use Status: Former Tobacco user Tobacco use type: Smokeless Tobacco Smoked in Last 30 Days: No e-Cigarette/Vaping Use: Former Use Patient Interested in Nicotine Replacement: No Patient Given Instructions on How to Stop Smoking: No Second Hand Smoke Exposure: No Currently Displaying Signs/Symptoms of Drug Intoxication Withdrawal: No Have you been hit, kicked, punched, or otherwise hurt by someone within the past year? If so, by whom?: No Do you feel safe in your current relationship?: No Current Relationship Is there a partner from a previous relationship who is making you feel unsafe now?: No Are you made to feel afraid or neglected: No Advance Directives: No Advance Directives Information Provided: Yes Do you have thoughts of harming others: None Do you have a plan to hurt others: No Plan Recently lost weight without trying: No How much weight loss: Not applicable Nutrition Risks: No Nutritional Risk Poor oral hygiene: No service: No Sexual orientation: Straight/Heterosexual Meds Allergies Allergy/AdvReac Type Severity Reaction Status Date / Time No Known Allergies Allergy Verified 03/07/25 13:55 Active Medications: Current Medications Acetaminophen (Acetaminophen 325 Mg Tablet) 650 mg PO Q6H PRN PRN Reason: Headache/Pain, Scale 1-10 Al Hydroxide/Mg Hydroxide (Magnesium Hydrox/Alum Hydrox 30 Ml Oral.Susp) 30 ml PO Q6H PRN PRN Reason: Heartburn/Nausea Aripiprazole (Aripiprazole 5 Mg Tablet) 5 mg PO BEDTIME SYDNI Last Admin: 03/07/25 20:09 Dose: 5 mg Hydroxyzine HCl (Hydroxyzine Hcl 25 Mg Tablet) 25 mg PO Q6H PRN PRN Reason: mild anxiety Last Admin: 03/07/25 20:09 Dose: 25 mg Ibuprofen (Ibuprofen 800 Mg Tablet) 800 mg PO Q8H PRN PRN Reason: back pain Magnesium Hydroxide (Milk Of Magnesia 30 Ml Oral.Susp) 30 ml PO DAILY PRN PRN Reason: Constipation Nicotine Polacrilex (Nicotine Polacrilex 2 Mg Gum) 4 mg BUCCAL Q2H PRN PRN Reason: Nicotine Cravings Last Admin: 03/07/25 20:15 Dose: 4 mg Olanzapine (Olanzapine 5 Mg Tablet) 5 mg PO Q4H PRN PRN Reason: agitation Last Admin: 03/07/25 20:09 Dose: 5 mg Trazodone HCl (Trazodone Hcl 50 Mg Tablet) 50 mg PO BEDTIME MRX1 PRN PRN Reason: Insomnia Last Admin: 03/07/25 20:09 Dose: 50 mg Home Medications ?Medication ?Instructions ?Recorded ?Confirmed ?Last Taken ?Type No Known Home Meds 03/08/25 03/08/25 Un known History Physical Exam Vital Signs and Narrative: Vital Signs: Last Vital Signs Temp 98.7 F 03/07/25 19:40 Pulse 81 03/07/25 19:40 Resp 16 03/07/25 19:40 BP 133/73 03/07/25 19:40 Pulse Ox 94 03/07/25 19:40 O2 Del Method Room Air 03/07/25 19:40 CONST: Alert and oriented when awokened, in NAD. Well nourished. Sleeping easily arousable HEENT: Normocephalic, atraumatic, MMM, Eyes clear, Neck supple RESP: Lungs clear, RRR even and regular HEART:,RRR, S1, S2. No edema GI:Abdomen Soft NT, ND. + BS times four :Deferred SKIN: Warm dry and intact, no visible lesions or rashes NEURO:CN II-XII Intact bilaterally, Sensation intact. Speech clear PSYCH: Flat affect Assessment and Plan (1) Suicide ideation: Status: Acute Plan 25-year-old male with past medical history as listed below admitted to inpatient psych for treatment of depression with suicide ideation. Schizophrenia/depression/suicidal ideation Treatment per psychiatric team Thank you for allowing me to participate in the care of this patient. Will follow with you, please notify medical provider with any changes in condition or concerns.
--- NOTE | 2025-03-08 09:53 | HO.PSYADMNOT ---
[facility] Date of Service: 03/08/25 Chief Complaint: Crisis Sources of Information: patient interviewed, chart reviewed and crisis/core team assessment reviewed HPI Subjective Notes: [place]keon Warning and Conditional Voluntary Narrative: Patient is a 25-year-old male with history of schizophrenia, who presented to ER due to suicidal ideation secondary to getting into a verbal altercation with his father. Per crisis report, patient reported suicidal ideation with a plan to get shot in the head . Patient reports he had a verbal altercation with his father over argueta that was left in the sink which prompted his father to call the police to intervene. When police arrived at his home, the patient reports he asked the police to shoot him in the head and make it look like an accident. Patient was observed laughing at various points throughout assessment. Patient reports he feels the past 6 years of his life even a waste. He ran away from home multiple times with no money or plan. Patient reports in the past year he has applied to over 4000 jobs but never followed up with them. Patient reports he missed his court date last for an aggravated assault charge. Patient refused to provide his parents name or contact information. History of 1 other inpatient psychiatric hospitalization in [place]. Patient is currently not prescribed any psychiatric medications and does not have outpatient psychiatric providers. Utox was negative. During admission assessment, patient presents alert and oriented x3. Calm and cooperative. Patient reports feeling depressed ; patient stated, I mentioned suicide because I don't care about my life because I'm surrounded by assholes. I wish I was . Nothing works in my favor. I'm not going to do something to . Patient reports he is currently not taking any psychiatric medications nor does he have outpatient psychiatric providers. Patient reports history of taking Abilify and Zoloft which he reports were helpful with decreasing voices and depression. Patient reports he has not taken medications since 2021 because he does not have a prescriber. Patient currently denies HI/VH/AH. He reports the last time he had auditory hallucinations was in January of 2025. He reports occasional marijuana use. Denies any other substance use. Denies history of SIB. He reports a history of overdosing on his antidepressants 8 years ago but states he was not hospitalized for this. Past Psychiatric History: History of 1 other inpatient psychiatric hospitalization in [place]. Patient is currently not prescribed any psychiatric medications and does not have outpatient psychiatric providers. Denies history of SIB. He reports a history of overdosing on his antidepressants 8 years ago but states he was not hospitalized for this. Medical Evaluation Reviewed: Yes PMF Family History: Unknown Social History: Lives with parents. Single. No kids. Unemployed. Some college. Substance History: Occasional marijuana use. U tox negative. Trauma History: Yes Diagnostics Vital Signs (24Hr): Vital Signs - 24 hr 03/07/25 15:20 03/07/25 19:40 Temperature 97.8 F 98.7 F Pulse Rate 84 81 Respiratory Rate 16 16 Blood Pressure 124/58 L 133/73 Pulse Oximetry 94 Oxygen Delivery Method Room Air Room Air Meds/Allergies Meds Home Medications ?Medication ?Instructions ?Recorded ?Confirmed ?Type No Known Home Meds 03/08/25 03/08/25 History Allergies Allergies Allergy/AdvReac Type Severity Reaction Status Date / Time No Known Allergies Allergy Verified 03/07/25 13:55 Mental Status Exam Mental Status Exam Narrative: Pt is alert and oriented; behavior is cooperative and calm; dressed in casual attire, malodorous; mood is described as depressed ; eye contact appropriate; Speech is normal rate, volume and not pressured, mumbled; thought process is organized; Thought content is on tx; denies HI/VH/AH. Assessment & Plan Assessment & Plan (1) Schizophrenia: Status: Acute Code(s): F20.9 - Schizophrenia, unspecified (2) Suicide ideation: Status: Acute Code(s): R45.851 - Suicidal ideations Plan Patient is a 25-year-old male with history of schizophrenia, who presented to ER due to suicidal ideation secondary to getting into a verbal altercation with his father. Plan: CV 15 minute safety checks Obtain collateral Start: Abilify 10mg PO bedtime; risks/benefits reviewed Encourage groups Referral to outpatient psychiatric providers Discharge planning Patient educated on: diagnosis and medication risk/benefits Reason for continued inpatient stay Substantial Risk for: harm to self and med/psych decompensation Statement Statement: I have reviewed the history and physical and performed a pertinent examination on my patient. No changes have occurred unless specified. If the History and Physical was not performed prior to admission, the Hospitalist's service will be consulted for completing the admission physical. Time Spent With Patient Time: Total time managing care of this patient today _60___ minutes.
[2025-03-08 20:00] VITALS: BP 127/69; PULSE 96; RESP 16; TEMP 36.7; O2SAT 98
[2025-03-09 07:25] VITALS: BP 98/48; PULSE 65; RESP 16; TEMP 36.4; O2SAT 98
--- NOTE | 2025-03-09 08:52 | HO.PSYCHPN ---
Subjective Subjective Date of Service: 03/09/25 Reason For Visit: Crisis Subjective Notes: Conditional Voluntary Interim History: Social with select peers. Patient reports feeling depressed d/t living situation; pt stated, My dad triggers me. It's stressful living there . denies any side effects from Abilify. Pt requesting increased in Trazodone and Hydroxyzine. denies SI; pt stated, If I was suicidal then I would have attempted to run off this unit and jump off the building . denies HI/VH/AH. Continue tx plan. Medication Compliance: Yes Side effects from medications: No Mental Status Exam Mental Status Exam Narrative: Pt is alert and oriented; behavior is cooperative and calm; dressed in casual attire; mood is described as depressed ; eye contact appropriate; Speech is normal rate, volume and not pressured; thought process is organized; Thought content is on discharge; denies SI/HI/VH/AH. Diagnostics Vital Signs (24Hr): Vital Signs - 24 hr 03/08/25 20:00 03/09/25 07:25 Temperature 98.0 F 97.6 F Pulse Rate 96 65 Respiratory Rate 16 16 Blood Pressure 127/69 98/48 L Pulse Oximetry 98 98 Oxygen Delivery Method Room Air Room Air Labs 03/09/25 09:24 Medications Medications Current Medications Acetaminophen (Acetaminophen 325 Mg Tablet) 975 mg PO Q6H PRN PRN Reason: Headache/Pain, Scale 1-10 Al Hydroxide/Mg Hydroxide (Magnesium Hydrox/Alum Hydrox 30 Ml Oral.Susp) 30 ml PO Q6H PRN PRN Reason: Heartburn/Nausea Aripiprazole (Aripiprazole 10 Mg Tablet) 10 mg PO BEDTIME SYDNI Last Admin: 03/08/25 21:21 Dose: 10 mg Hydroxyzine HCl (Hydroxyzine Hcl 25 Mg Tablet) 25 mg PO Q6H PRN PRN Reason: mild anxiety Last Admin: 03/07/25 20:09 Dose: 25 mg Ibuprofen (Ibuprofen 800 Mg Tablet) 800 mg PO Q8H PRN PRN Reason: back pain Magnesium Hydroxide (Milk Of Magnesia 30 Ml Oral.Susp) 30 ml PO DAILY PRN PRN Reason: Constipation Nicotine Polacrilex (Nicotine Polacrilex 2 Mg Gum) 4 mg BUCCAL Q2H PRN PRN Reason: Nicotine Cravings Last Admin: 03/07/25 20:15 Dose: 4 mg Olanzapine (Olanzapine 5 Mg Tablet) 5 mg PO Q4H PRN PRN Reason: agitation Last Admin: 03/07/25 20:09 Dose: 5 mg Trazodone HCl (Trazodone Hcl 50 Mg Tablet) 50 mg PO BEDTIME MRX1 PRN PRN Reason: Insomnia Last Admin: 03/08/25 21:24 Dose: 50 mg Allergies Allergies Allergy/AdvReac Type Severity Reaction Status Date / Time No Known Allergies Allergy Verified 03/07/25 13:55 Assessment & Plan Assessment & Plan (1) Schizophrenia: Status: Acute Code(s): F20.9 - Schizophrenia, unspecified (2) Suicide ideation: Status: Acute Code(s): R45.851 - Suicidal ideations Plan Patient is a 25-year-old male with history of schizophrenia, who presented to ER due to suicidal ideation secondary to getting into a verbal altercation with his father. Plan: CV 15 minute safety checks Obtain collateral Start: Abilify 10mg PO bedtime; risks/benefits reviewed Encourage groups Referral to outpatient psychiatric providers Discharge planning 03/09: Social with select peers. Patient reports feeling depressed d/t living situation; pt stated, My dad triggers me. It's stressful living there . denies any side effects from Abilify. Pt requesting increased in Trazodone and Hydroxyzine. denies SI; pt stated, If I was suicidal then I would have attempted to run off this unit and jump off the building . denies HI/VH/AH. Continue tx plan Patient educated on: diagnosis, medication risk/benefits and therapeutic strategies Reason for continued inpatient stay Substantial Risk for: med/psych decompensation Time Spent With Patient Time: Total time managing care of this patient today _20___ minutes.
[2025-03-09 10:10] LABS: Alanine Aminotransferase 66 U/L (0-40); Albumin Level 4.4 g/dL (3.5-5.0); Alkaline Phosphatase 67 U/L (39-117); Anion Gap 11 (12-20); Aspartate Amino Transferase 37 U/L (5-37); Blood Urea Nitrogen 15 mg/dL (9-16); Calcium 9.1 mg/dL (8.4-10.2); Carbon Dioxide 30 mmol/L (22-29); Chloride 103 mmol/L (96-108); Cholesterol 178 mg/dL (<200); Estimated Glomerular Filt Rate > 60; HDL Cholesterol 36 mg/dL (>40); Potassium 3.9 mmol/L (3.3-5.1); Sodium 140 mmol/L (135-145); Total Protein 7.0 g/dL (6.5-8.0); Triglycerides 193 mg/dL (<150)
[2025-03-09 10:31] LABS: Hemoglobin A1C 102.6778 umol/L; Total Hemoglobin (HGBA1C) 3680.7091 umol/L
[2025-03-09 20:00] VITALS: BP 118/73; PULSE 60; RESP 16; TEMP 36.7; O2SAT 99
[2025-03-10 08:00] VITALS: BP 137/75; PULSE 80; RESP 20; TEMP 36.7; O2SAT 98
[2025-03-10 09:41] VITALS: BMI 32.0
[2025-03-10 20:00] VITALS: BP 130/69; PULSE 81; RESP 16; TEMP 37; O2SAT 99
--- NOTE | 2025-03-10 20:36 | HO.PSYCHPN ---
Subjective Subjective Date of Service: 03/10/25 Reason For Visit: Crisis Subjective Notes: Conditional Voluntary Healthcare Proxy: No Guardianship: No Medical Problems Affecting Mental Status: No Interim History: Medical record and nursing notes reviewed; case discussed during rounds with team/nursing staff, and met with patient for supportive therapy/psychoeducation, as well as medication management. Patient slept okay, appetite is fine, compliant with medications, denies side effects except bloated feeling. Reports that mood is up and down. Reports having passive SI prior to be admitted here. However he denies safety concerns. Patient appeared to be hyperverbal, on the phone for a long period of time. Patient requests to have medication for GERD, vitamin-D, and other supplements. Also asked if he can get medication to balance his serotonin level. , does not upon approach but per nursing patient can be irritable,hypomanic. Discussed with patient regarding medication changes, patient is receptive. Medication Compliance: Yes Side effects from medications: Yes (Bloated ) Attending Groups: Intermittent Review of Systems Acute medical concerns: No Medical Review of Systems: unchanged Review of Systems Review of Systems Denies any shortness of breath, chest pain, headaches, dysuria, abdominal pain or discomfort, nausea, vomiting or diarrhea. Yes all other systems are reviewed and are negative Mental Status Exam Mental Status Exam Narrative: Pt is alert and oriented; behavior is cooperative and calm; dressed in casual attire; mood is described as up and down ; eye contact appropriate; Speech is normal rate, volume and not pressured seem hyperverbal, thought process is organized; Thought content is on treatment; denies SI/HI/VH/AH. Diagnostics Vital Signs (24Hr): Vital Signs - 24 hr 03/10/25 08:00 Temperature 98.1 F Pulse Rate 80 Respiratory Rate 20 Blood Pressure 137/75 Pulse Oximetry 98 Oxygen Delivery Method Room Air BMI result Body Mass Index 32.0 Labs 03/09/25 09:24 Labs: Laboratory Results - last 48 hr 03/09/25 09:24 Sodium 140 Potassium 3.9 Chloride 103 Carbon Dioxide 30 H Anion Gap 11 L BUN 15 Creatinine 1.17 Estim Creat Clear Calc TNP Estimated GFR > 60 Random Glucose 97 Estimat Average Glucose 88 Hemoglobin A1c % 4.7 Calcium 9.1 Total Bilirubin 0.8 AST 37 ALT 66 H Alkaline Phosphatase 67 Total Protein 7.0 Albumin 4.4 Triglycerides 193 H Cholesterol 178 LDL Cholesterol, Calc 104 H HDL Cholesterol 36 L Medications Medications Current Medications Acetaminophen (Acetaminophen 325 Mg Tablet) 975 mg PO Q6H PRN PRN Reason: Headache/Pain, Scale 1-10 Al Hydroxide/Mg Hydroxide (Magnesium Hydrox/Alum Hydrox 30 Ml Oral.Susp) 30 ml PO Q6H PRN PRN Reason: Heartburn/Nausea Aripiprazole (Aripiprazole 15 Mg Tablet) 15 mg PO BEDTIME [facility] Hydroxyzine HCl (Hydroxyzine Hcl 50 Mg Tablet) 50 mg PO Q8H PRN PRN Reason: mild anxiety Last Admin: 03/09/25 23:10 Dose: 50 mg Ibuprofen (Ibuprofen 800 Mg Tablet) 800 mg PO Q8H PRN PRN Reason: back pain Last Admin: 03/09/25 20:51 Dose: 800 mg Magnesium Hydroxide (Milk Of Magnesia 30 Ml Oral.Susp) 30 ml PO DAILY PRN PRN Reason: Constipation Melatonin (Melatonin 3 Mg Tablet) 9 mg PO BEDTIME [facility] Nicotine Polacrilex (Nicotine Polacrilex 2 Mg Gum) 4 mg BUCCAL Q2H PRN PRN Reason: Nicotine Cravings Last Admin: 03/07/25 20:15 Dose: 4 mg Olanzapine (Olanzapine 5 Mg Tablet) 5 mg PO Q4H PRN PRN Reason: agitation Last Admin: 03/07/25 20:09 Dose: 5 mg Omeprazole (Omeprazole 20 Mg Capsule.Dr) 20 mg PO DAILY@0630 [facility] Simethicone (Simethicone 80 Mg Tab.Chew) 80 mg PO TID PRN PRN Reason: Bloated Last Admin: 03/10/25 15:55 Dose: 80 mg Trazodone HCl (Trazodone Hcl 100 Mg Tablet) 100 mg PO BEDTIME PRN PRN Reason: Insomnia Last Admin: 03/09/25 23:11 Dose: 100 mg Allergies Allergies Allergy/AdvReac Type Severity Reaction Status Date / Time No Known Allergies Allergy Verified 03/07/25 13:55 Assessment & Plan Assessment & Plan (1) Schizophrenia: Status: Acute Code(s): F20.9 - Schizophrenia, unspecified (2) Suicide ideation: Status: Acute Code(s): R45.851 - Suicidal ideations Plan Patient is a 25-year-old male with history of schizophrenia, who presented to ER due to suicidal ideation secondary to getting into a verbal altercation with his father. Plan: CV 15 minute safety checks Obtain collateral Start: Abilify 10mg PO bedtime; risks/benefits reviewed Encourage groups Referral to outpatient psychiatric providers Discharge planning 03/09: Social with select peers. Patient reports feeling depressed d/t living situation; pt stated, My dad triggers me. It's stressful living there . denies any side effects from Abilify. Pt requesting increased in Trazodone and Hydroxyzine. denies SI; pt stated, If I was suicidal then I would have attempted to run off this unit and jump off the building . denies HI/VH/AH. Continue tx plan. 03/10/25: Patient slept okay, appetite is fine, compliant with medications, denies side effects except bloated feeling. Reports that mood is up and down. Reports having passive SI prior to be admitted here. However he denies safety concerns. Patient appeared to be hyperverbal, on the phone for a long period of time. Patient requests to have medication for GERD, vitamin-D, and other supplements. Also asked if he can get medication to balance his serotonin level. , does not upon approach but per nursing patient can be irritable,hypomanic. Discussed with patient regarding medication changes, patient is receptive. Can be irritable, hypomanic. Discussed with patient regarding medication changes, patient is receptive. Omeprazole 20 mg daily in the morning Abilify increased up to 15 minutes ambulance at bedtime. Simethicone 80 mg t.i.d. p.r.n. for heartburn. Melatonin 9 mg daily at bedtime for insomnia. Reports that he has been taking higher dose Patient educated on: medication risk/benefits and therapeutic strategies Informed Consent: understands Reason for continued inpatient stay Substantial Risk for: med/psych decompensation Time Spent With Patient Time: Total time managing care of this patient today ____ minutes.
--- NOTE | 2025-03-11 05:41 | PC.NURSE ---
refused MARIA ALEJANDRA kellersekwame reporting it was ''too early to take medication''
[2025-03-11 08:00] VITALS: BP 124/74; PULSE 70; RESP 16; TEMP 36.4; O2SAT 98
[2025-03-11 08:13] VITALS: BP 124/74; PULSE 70; RESP 16; TEMP 36.4; O2SAT 98
--- NOTE | 2025-03-11 13:22 | HO.PSYCHPN ---
Subjective Subjective Date of Service: 03/11/25 Reason For Visit: Crisis Subjective Notes: Conditional Voluntary Healthcare Proxy: No Guardianship: No Medical Problems Affecting Mental Status: No Interim History: Medical record and nursing notes reviewed; case discussed during rounds with team/nursing staff, and met with patient for supportive therapy/psychoeducation, as well as medication management. Patient slept for 8 hours, compliant with meds. Report feeling anxous and depress and feeling like it is not enough stimuli for him- not enough engagment and activites for him to keep him busy. He states that he is in bed all this morning. Report lack of interest and motivation. However, denies SI/SIB/HI/AVH. report to nursing that he experience AH but not disclose in details. He thinks his Abilify should be on 25mg. Some labile mood, racing thoughts. Medication Compliance: Yes Side effects from medications: No Attending Groups: Intermittent Review of Systems Acute medical concerns: No Medical Review of Systems: unchanged Review of Systems Review of Systems Denies any shortness of breath, chest pain, headaches, dysuria, abdominal pain or discomfort, nausea, vomiting or diarrhea. Yes all other systems are reviewed and are negative Mental Status Exam Mental Status Exam Narrative: Pt is alert and oriented; behavior is cooperative and pleasant; dressed in casual attire; mood is described as anxious and depressed ; eye contact appropriate; Speech is normal rate, volume and not pressured seem hyperverbal, thought process is organized, someehat labile. Thought content is on treatment; denies SI/HI/VH/AH. Diagnostics Vital Signs (24Hr): Vital Signs - 24 hr 03/10/25 20:00 03/11/25 08:00 03/11/25 08:13 Temperature 98.6 F 97.6 F 97.6 F Pulse Rate 81 70 70 Respiratory Rate 16 16 16 Blood Pressure 130/69 124/74 124/74 Pulse Oximetry 99 98 98 Oxygen Delivery Method Room Air Room Air Room Air BMI result Body Mass Index 32.0 Labs 03/09/25 09:24 Medications Medications Current Medications Acetaminophen (Acetaminophen 325 Mg Tablet) 975 mg PO Q6H PRN PRN Reason: Headache/Pain, Scale 1-10 Al Hydroxide/Mg Hydroxide (Magnesium Hydrox/Alum Hydrox 30 Ml Oral.Susp) 30 ml PO Q6H PRN PRN Reason: Heartburn/Nausea Aripiprazole (Aripiprazole 15 Mg Tablet) 15 mg PO BEDTIME SYDNI Last Admin: 03/10/25 20:38 Dose: 15 mg Hydroxyzine HCl (Hydroxyzine Hcl 50 Mg Tablet) 50 mg PO Q8H PRN PRN Reason: mild anxiety Last Admin: 03/10/25 20:40 Dose: 50 mg Ibuprofen (Ibuprofen 800 Mg Tablet) 800 mg PO Q8H PRN PRN Reason: back pain Last Admin: 03/10/25 20:39 Dose: 800 mg Magnesium Hydroxide (Milk Of Magnesia 30 Ml Oral.Susp) 30 ml PO DAILY PRN PRN Reason: Constipation Melatonin (Melatonin 3 Mg Tablet) 9 mg PO BEDTIME SYDNI Last Admin: 03/10/25 20:38 Dose: 9 mg Nicotine Polacrilex (Nicotine Polacrilex 2 Mg Gum) 4 mg BUCCAL Q2H PRN PRN Reason: Nicotine Cravings Last Admin: 03/11/25 08:52 Dose: 4 mg Olanzapine (Olanzapine 5 Mg Tablet) 5 mg PO Q4H PRN PRN Reason: agitation Last Admin: 03/07/25 20:09 Dose: 5 mg Omeprazole (Omeprazole 20 Mg Capsule.Dr) 20 mg PO DAILY@0630 SYDNI Last Admin: 03/11/25 05:40 Dose: Not Given Simethicone (Simethicone 80 Mg Tab.Chew) 80 mg PO TID PRN PRN Reason: Bloated Last Admin: 03/10/25 15:55 Dose: 80 mg Trazodone HCl (Trazodone Hcl 100 Mg Tablet) 100 mg PO BEDTIME PRN PRN Reason: Insomnia Last Admin: 03/10/25 20:39 Dose: 100 mg Allergies Allergies Allergy/AdvReac Type Severity Reaction Status Date / Time No Known Allergies Allergy Verified 03/07/25 13:55 Assessment & Plan Assessment & Plan (1) Schizophrenia: Status: Acute Code(s): F20.9 - Schizophrenia, unspecified (2) Suicide ideation: Status: Acute Code(s): R45.851 - Suicidal ideations Plan Patient is a 25-year-old male with history of schizophrenia, who presented to ER due to suicidal ideation secondary to getting into a verbal altercation with his father. Plan: CV 15 minute safety checks Obtain collateral Start: Abilify 10mg PO bedtime; risks/benefits reviewed Encourage groups Referral to outpatient psychiatric providers Discharge planning 03/09: Social with select peers. Patient reports feeling depressed d/t living situation; pt stated, My dad triggers me. It's stressful living there . denies any side effects from Abilify. Pt requesting increased in Trazodone and Hydroxyzine. denies SI; pt stated, If I was suicidal then I would have attempted to run off this unit and jump off the building . denies HI/VH/AH. Continue tx plan. 03/10/25: Patient slept okay, appetite is fine, compliant with medications, denies side effects except bloated feeling. Reports that mood is up and down. Reports having passive SI prior to be admitted here. However he denies safety concerns. Patient appeared to be hyperverbal, on the phone for a long period of time. Patient requests to have medication for GERD, vitamin-D, and other supplements. Also asked if he can get medication to balance his serotonin level. , does not upon approach but per nursing patient can be irritable,hypomanic. Discussed with patient regarding medication changes, patient is receptive. Can be irritable, hypomanic. Discussed with patient regarding medication changes, patient is receptive. Omeprazole 20 mg daily in the morning Abilify increased up to 15 minutes ambulance at bedtime. Simethicone 80 mg t.i.d. p.r.n. for heartburn. Melatonin 9 mg daily at bedtime for insomnia. Reports that he has been taking higher dose 03/11/25: Patient slept for 8 hours, compliant with meds. Report feeling anxious and depress and feeling like it is not enough stimuli for him- not enough engagement and activities for him to keep him busy. He states that he is in bed all this morning. Report lack of interest and motivation. However, denies SI/SIB/HI/AVH. report to nursing that he experience AH but not disclose in details. He thinks his Abilify should be on 25mg. Some labile mood, racing thoughts. Patient educated on: diagnosis, medication risk/benefits and therapeutic strategies Informed Consent: understands and further education needed Reason for continued inpatient stay Substantial Risk for: med/psych decompensation Time Spent With Patient Time: Total time managing care of this patient today ____ minutes.
[2025-03-11 19:30] VITALS: BP 140/65; PULSE 98; RESP 16; TEMP 36.2; O2SAT 98
[2025-03-12] MEDS: Magnesium Hydrox/Alum Hydrox 30 ML ORAL.SUSP PO ×2 (00:26→21:47)
[2025-03-12 08:30] VITALS: BP 139/74; PULSE 93; RESP 14; TEMP 36.3; O2SAT 96
--- NOTE | 2025-03-12 12:58 | HO.PSYCHPN ---
Subjective Subjective Date of Service: 03/12/25 Reason For Visit: Crisis Subjective Notes: Conditional Voluntary Interim History: Active on unit. social with peers. attending groups. Patient reports feeling stable since being here ; pt stated, I'm not angry or depressed. I wasn't able to sleep well because of my room mate snoring . denies SI/HI/VH. He reports auditory hallucinations of whispers but states he ignores them . Patient reports he is no longer feeling suicidal because he thinks about the dream and potential of traveling around the world . Plan to discharge this week if continues to improve; pt aware. continue tx plan. Medication Compliance: Yes Side effects from medications: No Attending Groups: Yes Mental Status Exam Mental Status Exam Narrative: Pt is alert and oriented; behavior is cooperative and calm; dressed in casual attire; mood is described as good ; eye contact appropriate; Speech is normal rate, volume and not pressured; thought process is organized; Thought content is on tx/discharge; denies SI/HI/VH. +AH of whispers . Diagnostics Vital Signs (24Hr): Vital Signs - 24 hr 03/11/25 19:30 03/12/25 08:30 03/12/25 08:30 Temperature 97.2 F 97.4 F 97.4 F Pulse Rate 98 93 93 Respiratory Rate 16 14 14 Blood Pressure 140/65 H 139/74 139/74 Pulse Oximetry 98 96 96 Oxygen Delivery Method Room Air Room Air Room Air BMI result Body Mass Index 32.0 Labs 03/09/25 09:24 Medications Medications Current Medications Acetaminophen (Acetaminophen 325 Mg Tablet) 975 mg PO Q6H PRN PRN Reason: Headache/Pain, Scale 1-10 Al Hydroxide/Mg Hydroxide (Magnesium Hydrox/Alum Hydrox 30 Ml Oral.Susp) 30 ml PO Q6H PRN PRN Reason: Heartburn/Nausea Last Admin: 03/12/25 00:26 Dose: 30 ml Aripiprazole (Aripiprazole 15 Mg Tablet) 15 mg PO BEDTIME SYDNI Last Admin: 03/11/25 22:30 Dose: 15 mg Hydroxyzine HCl (Hydroxyzine Hcl 50 Mg Tablet) 50 mg PO Q8H PRN PRN Reason: mild anxiety Last Admin: 03/11/25 18:55 Dose: 50 mg Ibuprofen (Ibuprofen 800 Mg Tablet) 800 mg PO Q8H PRN PRN Reason: back pain Last Admin: 03/11/25 22:30 Dose: 800 mg Magnesium Hydroxide (Milk Of Magnesia 30 Ml Oral.Susp) 30 ml PO DAILY PRN PRN Reason: Constipation Melatonin (Melatonin 3 Mg Tablet) 9 mg PO BEDTIME SYDNI Last Admin: 03/11/25 22:30 Dose: 9 mg Nicotine Polacrilex (Nicotine Polacrilex 2 Mg Gum) 4 mg BUCCAL Q2H PRN PRN Reason: Nicotine Cravings Last Admin: 03/11/25 08:52 Dose: 4 mg Olanzapine (Olanzapine 5 Mg Tablet) 5 mg PO Q4H PRN PRN Reason: agitation Last Admin: 03/07/25 20:09 Dose: 5 mg Omeprazole (Omeprazole 20 Mg Capsule.Dr) 20 mg PO DAILY@0630 SYDNI Last Admin: 03/12/25 07:00 Dose: 20 mg Simethicone (Simethicone 80 Mg Tab.Chew) 80 mg PO TID PRN PRN Reason: Bloated Last Admin: 03/10/25 15:55 Dose: 80 mg Trazodone HCl (Trazodone Hcl 100 Mg Tablet) 100 mg PO BEDTIME PRN PRN Reason: Insomnia Last Admin: 03/11/25 22:30 Dose: 100 mg Allergies Allergies Allergy/AdvReac Type Severity Reaction Status Date / Time No Known Allergies Allergy Verified 03/07/25 13:55 Assessment & Plan Assessment & Plan (1) Schizophrenia: Status: Acute Code(s): F20.9 - Schizophrenia, unspecified (2) Suicide ideation: Status: Acute Code(s): R45.851 - Suicidal ideations Plan Patient is a 25-year-old male with history of schizophrenia, who presented to ER due to suicidal ideation secondary to getting into a verbal altercation with his father. Plan: CV 15 minute safety checks Obtain collateral Start: Abilify 10mg PO bedtime; risks/benefits reviewed Encourage groups Referral to outpatient psychiatric providers Discharge planning 03/09: Social with select peers. Patient reports feeling depressed d/t living situation; pt stated, My dad triggers me. It's stressful living there . denies any side effects from Abilify. Pt requesting increased in Trazodone and Hydroxyzine. denies SI; pt stated, If I was suicidal then I would have attempted to run off this unit and jump off the building . denies HI/VH/AH. Continue tx plan. 03/10/25: Patient slept okay, appetite is fine, compliant with medications, denies side effects except bloated feeling. Reports that mood is up and down. Reports having passive SI prior to be admitted here. However he denies safety concerns. Patient appeared to be hyperverbal, on the phone for a long period of time. Patient requests to have medication for GERD, vitamin-D, and other supplements. Also asked if he can get medication to balance his serotonin level. , does not upon approach but per nursing patient can be irritable,hypomanic. Discussed with patient regarding medication changes, patient is receptive. Can be irritable, hypomanic. Discussed with patient regarding medication changes, patient is receptive. Omeprazole 20 mg daily in the morning Abilify increased up to 15 minutes ambulance at bedtime. Simethicone 80 mg t.i.d. p.r.n. for heartburn. Melatonin 9 mg daily at bedtime for insomnia. Reports that he has been taking higher dose 03/11/25: Patient slept for 8 hours, compliant with meds. Report feeling anxious and depress and feeling like it is not enough stimuli for him- not enough engagement and activities for him to keep him busy. He states that he is in bed all this morning. Report lack of interest and motivation. However, denies SI/SIB/HI/AVH. report to nursing that he experience AH but not disclose in details. He thinks his Abilify should be on 25mg. Some labile mood, racing thoughts. 03/12: Active on unit. social with peers. attending groups. Patient reports feeling stable since being here ; pt stated, I'm not angry or depressed. I wasn't able to sleep well because of my room mate snoring . denies SI/HI/VH. He reports auditory hallucinations of whispers but states he ignores them . Patient reports he is no longer feeling suicidal because he thinks about the dream and potential of traveling around the world . Plan to discharge this week if continues to improve; pt aware. continue tx plan. Patient educated on: diagnosis and medication risk/benefits Reason for continued inpatient stay Substantial Risk for: med/psych decompensation Time Spent With Patient Time: Total time managing care of this patient today _20___ minutes.
[2025-03-12 19:54] VITALS: PULSE 118; RESP 16; TEMP 37.2; O2SAT 97
[2025-03-13 08:00] VITALS: BP 151/96; PULSE 98; RESP 16; TEMP 36.2; O2SAT 99
--- NOTE | 2025-03-13 09:02 | HO.PSYCHPN ---
Subjective Subjective Date of Service: 03/13/25 Reason For Visit: Crisis Subjective Notes: Conditional Voluntary Interim History: Patient reports feeling good today. Pt stated, I'm not depressed. That went away ;denies SI/HI/VH/AH. Patient requesting increase in Abilify. Abilify increased to 20mg PO bedtime. Plan to discharge ; pt aware. Medication Compliance: Yes Side effects from medications: No Attending Groups: Yes Mental Status Exam Mental Status Exam Narrative: Pt is alert and oriented; behavior is cooperative and calm; dressed in casual attire; mood is described as good ; eye contact appropriate; Speech is normal rate, volume and not pressured; thought process is organized; Thought content is on tx/discharge; denies SI/HI/VH/AH. Diagnostics Vital Signs (24Hr): Vital Signs - 24 hr 03/12/25 19:54 03/13/25 08:00 Temperature 98.9 F 97.2 F Pulse Rate 118 H 98 Respiratory Rate 16 16 Blood Pressure 151/96 H Pulse Oximetry 97 99 Oxygen Delivery Method Room Air Room Air BMI result Body Mass Index 32.0 Labs 03/09/25 09:24 Medications Medications Current Medications Acetaminophen (Acetaminophen 325 Mg Tablet) 975 mg PO Q6H PRN PRN Reason: Headache/Pain, Scale 1-10 Al Hydroxide/Mg Hydroxide (Magnesium Hydrox/Alum Hydrox 30 Ml Oral.Susp) 30 ml PO Q6H PRN PRN Reason: Heartburn/Nausea Last Admin: 03/12/25 21:47 Dose: 30 ml Aripiprazole (Aripiprazole 15 Mg Tablet) 15 mg PO BEDTIME SYDNI Last Admin: 03/12/25 21:39 Dose: 15 mg Hydroxyzine HCl (Hydroxyzine Hcl 50 Mg Tablet) 50 mg PO Q8H PRN PRN Reason: mild anxiety Last Admin: 03/11/25 18:55 Dose: 50 mg Ibuprofen (Ibuprofen 800 Mg Tablet) 800 mg PO Q8H PRN PRN Reason: back pain Last Admin: 03/12/25 21:40 Dose: 800 mg Magnesium Hydroxide (Milk Of Magnesia 30 Ml Oral.Susp) 30 ml PO DAILY PRN PRN Reason: Constipation Melatonin (Melatonin 3 Mg Tablet) 9 mg PO BEDTIME SYDNI Last Admin: 03/12/25 21:39 Dose: 9 mg Nicotine Polacrilex (Nicotine Polacrilex 2 Mg Gum) 4 mg BUCCAL Q2H PRN PRN Reason: Nicotine Cravings Last Admin: 03/13/25 08:59 Dose: 4 mg Olanzapine (Olanzapine 5 Mg Tablet) 5 mg PO Q4H PRN PRN Reason: agitation Last Admin: 03/07/25 20:09 Dose: 5 mg Omeprazole (Omeprazole 20 Mg Capsule.Dr) 20 mg PO DAILY@0630 SYDNI Last Admin: 03/13/25 07:29 Dose: 20 mg Simethicone (Simethicone 80 Mg Tab.Chew) 80 mg PO TID PRN PRN Reason: Bloated Last Admin: 03/10/25 15:55 Dose: 80 mg Trazodone HCl (Trazodone Hcl 100 Mg Tablet) 100 mg PO BEDTIME PRN PRN Reason: Insomnia Last Admin: 03/12/25 21:39 Dose: 100 mg Allergies Allergies Allergy/AdvReac Type Severity Reaction Status Date / Time No Known Allergies Allergy Verified 03/07/25 13:55 Assessment & Plan Assessment & Plan (1) Schizophrenia: Status: Acute Code(s): F20.9 - Schizophrenia, unspecified (2) Suicide ideation: Status: Acute Code(s): R45.851 - Suicidal ideations Plan Patient is a 25-year-old male with history of schizophrenia, who presented to ER due to suicidal ideation secondary to getting into a verbal altercation with his father. Plan: CV 15 minute safety checks Obtain collateral Start: Abilify 10mg PO bedtime; risks/benefits reviewed Encourage groups Referral to outpatient psychiatric providers Discharge planning 03/09: Social with select peers. Patient reports feeling depressed d/t living situation; pt stated, My dad triggers me. It's stressful living there . denies any side effects from Abilify. Pt requesting increased in Trazodone and Hydroxyzine. denies SI; pt stated, If I was suicidal then I would have attempted to run off this unit and jump off the building . denies HI/VH/AH. Continue tx plan. 03/10/25: Patient slept okay, appetite is fine, compliant with medications, denies side effects except bloated feeling. Reports that mood is up and down. Reports having passive SI prior to be admitted here. However he denies safety concerns. Patient appeared to be hyperverbal, on the phone for a long period of time. Patient requests to have medication for GERD, vitamin-D, and other supplements. Also asked if he can get medication to balance his serotonin level. , does not upon approach but per nursing patient can be irritable,hypomanic. Discussed with patient regarding medication changes, patient is receptive. Can be irritable, hypomanic. Discussed with patient regarding medication changes, patient is receptive. Omeprazole 20 mg daily in the morning Abilify increased up to 15 minutes ambulance at bedtime. Simethicone 80 mg t.i.d. p.r.n. for heartburn. Melatonin 9 mg daily at bedtime for insomnia. Reports that he has been taking higher dose 03/11/25: Patient slept for 8 hours, compliant with meds. Report feeling anxious and depress and feeling like it is not enough stimuli for him- not enough engagement and activities for him to keep him busy. He states that he is in bed all this morning. Report lack of interest and motivation. However, denies SI/SIB/HI/AVH. report to nursing that he experience AH but not disclose in details. He thinks his Abilify should be on 25mg. Some labile mood, racing thoughts. 03/12: Active on unit. social with peers. attending groups. Patient reports feeling stable since being here ; pt stated, I'm not angry or depressed. I wasn't able to sleep well because of my room mate snoring . denies SI/HI/VH. He reports auditory hallucinations of whispers but states he ignores them . Patient reports he is no longer feeling suicidal because he thinks about the dream and potential of traveling around the world . Plan to discharge this week if continues to improve; pt aware. continue tx plan. 03/13: Patient reports feeling good today. Pt stated, I'm not depressed. That went away ;denies SI/HI/VH/AH. Patient requesting increase in Abilify. Abilify increased to 20mg PO bedtime. Plan to discharge ; pt aware. Patient educated on: diagnosis and medication risk/benefits Reason for continued inpatient stay Substantial Risk for: med/psych decompensation Time Spent With Patient Time: Total time managing care of this patient today _20___ minutes.
[2025-03-13] MEDS: Magnesium Hydrox/Alum Hydrox 30 ML ORAL.SUSP PO ×2 (16:23→20:10)
[2025-03-13] MEDS: Nicotine 21 MG PATCH.TD24 TRANSDERMA (16:24)
[2025-03-13 20:00] VITALS: BP 131/72; PULSE 88; RESP 20; TEMP 37.2; O2SAT 98
[2025-03-14 07:40] VITALS: BP 102/52; PULSE 72; RESP 14; TEMP 36.6; O2SAT 97
--- NOTE | 2025-03-14 08:30 | HO.PSYCHPN ---
Subjective Subjective Date of Service: 03/14/25 Reason For Visit: Crisis Subjective Notes: Conditional Voluntary Interim History: Patient reports feeling good today; denies SI/HI/VH/AH. denies any side effects from increase in Abilify. Patient reports feeling ready to go home tomorrow. He reports he plans on being medication compliant and following up with outpatient providers. Medication Compliance: Yes Side effects from medications: No Attending Groups: Yes Mental Status Exam Mental Status Exam Narrative: Pt is alert and oriented; behavior is cooperative and calm; dressed in casual attire; mood is described as good ; eye contact appropriate; Speech is normal rate, volume and not pressured; thought process is organized; Thought content is on discharge; denies SI/HI/VH/AH. Diagnostics Vital Signs (24Hr): Vital Signs - 24 hr 03/13/25 20:00 03/14/25 07:40 Temperature 99.0 F 97.9 F Pulse Rate 88 72 Respiratory Rate 20 14 Blood Pressure 131/72 102/52 L Pulse Oximetry 98 97 Oxygen Delivery Method Room Air Room Air BMI result Body Mass Index 32.0 Labs 03/09/25 09:24 Medications Medications Current Medications Acetaminophen (Acetaminophen 325 Mg Tablet) 975 mg PO Q6H PRN PRN Reason: Headache/Pain, Scale 1-10 Last Admin: 03/13/25 21:43 Dose: 975 mg Al Hydroxide/Mg Hydroxide (Magnesium Hydrox/Alum Hydrox 30 Ml Oral.Susp) 30 ml PO Q6H PRN PRN Reason: Heartburn/Nausea Last Admin: 03/13/25 20:10 Dose: 30 ml Aripiprazole (Aripiprazole 20 Mg Tablet) 20 mg PO BEDTIME SYDNI Last Admin: 03/13/25 19:57 Dose: 20 mg Clonidine HCl (Clonidine Hcl 0.1 Mg Tablet) 0.1 mg PO BID PRN; Protocol PRN Reason: anxiety/restlessness Hydroxyzine HCl (Hydroxyzine Hcl 50 Mg Tablet) 50 mg PO Q8H PRN PRN Reason: mild anxiety Last Admin: 03/11/25 18:55 Dose: 50 mg Ibuprofen (Ibuprofen 800 Mg Tablet) 800 mg PO Q8H PRN PRN Reason: back pain Last Admin: 03/12/25 21:40 Dose: 800 mg Magnesium Hydroxide (Milk Of Magnesia 30 Ml Oral.Susp) 30 ml PO DAILY PRN PRN Reason: Constipation Melatonin (Melatonin 3 Mg Tablet) 9 mg PO BEDTIME SYDNI Last Admin: 03/13/25 19:56 Dose: 9 mg Nicotine (Nicotine 21 Mg Patch.Td24) 21 mg TRANSDERMA DAILY PRN PRN Reason: Nicotine Cravings Last Admin: 03/13/25 16:24 Dose: 21 mg Nicotine Polacrilex (Nicotine Polacrilex 2 Mg Gum) 4 mg BUCCAL Q2H PRN PRN Reason: Nicotine Cravings Last Admin: 03/13/25 22:04 Dose: 4 mg Omeprazole (Omeprazole 20 Mg Capsule.Dr) 20 mg PO DAILY@0630 SYDNI Last Admin: 03/14/25 06:17 Dose: 20 mg Simethicone (Simethicone 80 Mg Tab.Chew) 80 mg PO TID PRN PRN Reason: Bloated Last Admin: 03/10/25 15:55 Dose: 80 mg Trazodone HCl (Trazodone Hcl 100 Mg Tablet) 100 mg PO BEDTIME PRN PRN Reason: Insomnia Last Admin: 03/13/25 19:57 Dose: 100 mg Allergies Allergies Allergy/AdvReac Type Severity Reaction Status Date / Time No Known Allergies Allergy Verified 03/07/25 13:55 Assessment & Plan Assessment & Plan (1) Schizophrenia: Status: Acute Code(s): F20.9 - Schizophrenia, unspecified (2) Suicide ideation: Status: Acute Code(s): R45.851 - Suicidal ideations Plan Patient is a 25-year-old male with history of schizophrenia, who presented to ER due to suicidal ideation secondary to getting into a verbal altercation with his father. Plan: CV 15 minute safety checks Obtain collateral Start: Abilify 10mg PO bedtime; risks/benefits reviewed Encourage groups Referral to outpatient psychiatric providers Discharge planning 03/09: Social with select peers. Patient reports feeling depressed d/t living situation; pt stated, My dad triggers me. It's stressful living there . denies any side effects from Abilify. Pt requesting increased in Trazodone and Hydroxyzine. denies SI; pt stated, If I was suicidal then I would have attempted to run off this unit and jump off the building . denies HI/VH/AH. Continue tx plan. 03/10/25: Patient slept okay, appetite is fine, compliant with medications, denies side effects except bloated feeling. Reports that mood is up and down. Reports having passive SI prior to be admitted here. However he denies safety concerns. Patient appeared to be hyperverbal, on the phone for a long period of time. Patient requests to have medication for GERD, vitamin-D, and other supplements. Also asked if he can get medication to balance his serotonin level. , does not upon approach but per nursing patient can be irritable,hypomanic. Discussed with patient regarding medication changes, patient is receptive. Can be irritable, hypomanic. Discussed with patient regarding medication changes, patient is receptive. Omeprazole 20 mg daily in the morning Abilify increased up to 15 minutes ambulance at bedtime. Simethicone 80 mg t.i.d. p.r.n. for heartburn. Melatonin 9 mg daily at bedtime for insomnia. Reports that he has been taking higher dose 03/11/25: Patient slept for 8 hours, compliant with meds. Report feeling anxious and depress and feeling like it is not enough stimuli for him- not enough engagement and activities for him to keep him busy. He states that he is in bed all this morning. Report lack of interest and motivation. However, denies SI/SIB/HI/AVH. report to nursing that he experience AH but not disclose in details. He thinks his Abilify should be on 25mg. Some labile mood, racing thoughts. 03/12: Active on unit. social with peers. attending groups. Patient reports feeling stable since being here ; pt stated, I'm not angry or depressed. I wasn't able to sleep well because of my room mate snoring . denies SI/HI/VH. He reports auditory hallucinations of whispers but states he ignores them . Patient reports he is no longer feeling suicidal because he thinks about the dream and potential of traveling around the world . Plan to discharge this week if continues to improve; pt aware. continue tx plan. 03/13: Patient reports feeling good today. Pt stated, I'm not depressed. That went away ;denies SI/HI/VH/AH. Patient requesting increase in Abilify. Abilify increased to 20mg PO bedtime. Plan to discharge ; pt aware. 03/14: Patient reports feeling good today; denies SI/HI/VH/AH. denies any side effects from increase in Abilify. Patient reports feeling ready to go home tomorrow. He reports he plans on being medication compliant and following up with outpatient providers. Patient educated on: diagnosis and medication risk/benefits Reason for continued inpatient stay Substantial Risk for: med/psych decompensation Time Spent With Patient Time: Total time managing care of this patient today _20___ minutes.
[2025-03-14] MEDS: Magnesium Hydrox/Alum Hydrox 30 ML ORAL.SUSP PO ×2 (08:33→18:30)
[2025-03-14] MEDS: Milk of Magnesia 30 ML ORAL.SUSP PO (18:35)
[2025-03-14 20:00] VITALS: BP 143/84; PULSE 100; RESP 16; TEMP 37.1; O2SAT 97
[2025-03-15 08:00] VITALS: BP 113/57; PULSE 66; RESP 18; TEMP 36.5; O2SAT 97
--- NOTE | 2025-03-15 08:55 | PM.PSYDC ---
DS: Providers Provider Date of Service: 03/15/25 Date of admission: 03/07/25 13:26 Date of discharge: 03/15/25 Primary care physician: Unknown Physician Admitting clinician: Tahira Sun Attending physician on admission: Ruddy Wiley Consults: 03/07/25 22:43 Consult to Hospitalist Routine Comment: Consulting Provider: [facility] Hospitalists Reason For Exam: H&P, from outside facility Attending physician on discharge: Ruddy Wiley Discharging clinician: Tahira Sun DS: Diagnosis Discharge Diagnosis (1) Schizophrenia: Status: Acute (2) Suicide ideation: Status: Acute DS: Medications Discharge Medications Home Medications: Previous Rx's ?Medication ?Instructions ?Recorded aripiprazole 20 mg tablet (Abilify) 20 mg PO BEDTIME 30 days #30 tabs 03/14/25 omeprazole 20 mg capsule,delayed 20 mg PO DAILY@0630 30 days #30 03/14/25 release caps Mental Status Exam Mental Status Exam Narrative: Pt is alert and oriented; behavior is cooperative and calm; dressed in casual attire; mood is described as good ; eye contact appropriate; Speech is normal rate, volume and not pressured; thought process is organized; Thought content is on discharge; denies SI/HI/VH/AH. Data Data Completed and Pending Completed studies during hospitalization [Text1]: 03/09/25 09:24 Sodium 140 Potassium 3.9 Chloride 103 Carbon Dioxide 30 H Anion Gap 11 L BUN 15 Creatinine 1.17 Estim Creat Clear Calc TNP Estimated GFR > 60 Random Glucose 97 Estimat Average Glucose 88 Hemoglobin A1c % 4.7 Calcium 9.1 Total Bilirubin 0.8 AST 37 ALT 66 H Alkaline Phosphatase 67 Total Protein 7.0 Albumin 4.4 Triglycerides 193 H Cholesterol 178 LDL Cholesterol, Calc 104 H HDL Cholesterol 36 L DS: Summary Hospital Course Hospital Course: Patient is a 25-year-old male with history of schizophrenia, who presented to ER due to suicidal ideation secondary to getting into a verbal altercation with his father. Per crisis report, patient reported suicidal ideation with a plan to get shot in the head . Patient reports he had a verbal altercation with his father over argueta that was left in the sink which prompted his father to call the police to intervene. When police arrived at his home, the patient reports he asked the police to shoot him in the head and make it look like an accident. Patient was observed laughing at various points throughout assessment. Patient reports he feels the past 6 years of his life even a waste. He ran away from home multiple times with no money or plan. Patient reports in the past year he has applied to over 4000 jobs but never followed up with them. Patient reports he missed his court date last for an aggravated assault charge. Patient refused to provide his parents name or contact information. History of 1 other inpatient psychiatric hospitalization in [place]. Patient is currently not prescribed any psychiatric medications and does not have outpatient psychiatric providers. Utox was negative. During admission assessment, patient presents alert and oriented x3. Calm and cooperative. Patient reports feeling depressed ; patient stated, I mentioned suicide because I don't care about my life because I'm surrounded by assholes. I wish I was . Nothing works in my favor. I'm not going to do something to . Patient reports he is currently not taking any psychiatric medications nor does he have outpatient psychiatric providers. Patient reports history of taking Abilify and Zoloft which he reports were helpful with decreasing voices and depression. Patient reports he has not taken medications since 2021 because he does not have a prescriber. Patient currently denies HI/VH/AH. He reports the last time he had auditory hallucinations was in January of 2025. He reports occasional marijuana use. Denies any other substance use. Denies history of SIB. He reports a history of overdosing on his antidepressants 8 years ago but states he was not hospitalized for this. Plan: CV 15 minute safety checks Obtain collateral Start: Abilify 10mg PO bedtime; risks/benefits reviewed Encourage groups Referral to outpatient psychiatric providers Discharge planning Social with select peers. Patient reports feeling depressed d/t living situation; pt stated, My dad triggers me. It's stressful living there . denies any side effects from Abilify. Pt requesting increased in Trazodone and Hydroxyzine. denies SI; pt stated, If I was suicidal then I would have attempted to run off this unit and jump off the building . denies HI/VH/AH. Continue tx plan. Patient slept okay, appetite is fine, compliant with medications, denies side effects except bloated feeling. Reports that mood is up and down. Reports having passive SI prior to be admitted here. However he denies safety concerns. Patient appeared to be hyperverbal, on the phone for a long period of time. Patient requests to have medication for GERD, vitamin-D, and other supplements. Also asked if he can get medication to balance his serotonin level. , does not upon approach but per nursing patient can be irritable,hypomanic. Discussed with patient regarding medication changes, patient is receptive. Can be irritable, hypomanic. Discussed with patient regarding medication changes, patient is receptive. Omeprazole 20 mg daily in the morning Abilify increased up to 15 minutes ambulance at bedtime. Simethicone 80 mg t.i.d. p.r.n. for heartburn. Melatonin 9 mg daily at bedtime for insomnia. Reports that he has been taking higher dose Patient slept for 8 hours, compliant with meds. Report feeling anxious and depress and feeling like it is not enough stimuli for him- not enough engagement and activities for him to keep him busy. He states that he is in bed all this morning. Report lack of interest and motivation. However, denies SI/SIB/HI/AVH. report to nursing that he experience AH but not disclose in details. He thinks his Abilify should be on 25mg. Some labile mood, racing thoughts. Active on unit. social with peers. attending groups. Patient reports feeling stable since being here ; pt stated, I'm not angry or depressed. I wasn't able to sleep well because of my room mate snoring . denies SI/HI/VH. He reports auditory hallucinations of whispers but states he ignores them . Patient reports he is no longer feeling suicidal because he thinks about the dream and potential of traveling around the world . Plan to discharge this week if continues to improve; pt aware. continue tx plan. Patient reports feeling good today. Pt stated, I'm not depressed. That went away ;denies SI/HI/VH/AH. Patient requesting increase in Abilify. Abilify increased to 20mg PO bedtime. Plan to discharge ; pt aware. Patient reports feeling good today; denies SI/HI/VH/AH. denies any side effects from increase in Abilify. Patient reports feeling ready to go home tomorrow. He reports he plans on being medication compliant and following up with outpatient providers. Status at Discharge Cognitive/behavioral status at discharge: Patient has insight and demonstrates good judgment in terms of wanting to pursue treatment. Patient has a safety plan that includes presenting to the closest ER or calling 911 if feeling unsafe. Functional status at discharge: independent ambulation Overall status at discharge: patient is back to baseline Time Spent with Patient Time attestation: Total time managing care of this patient today _20___ minutes. Time spent: Less than 30 minutes Discharge Plan Discharge Anticipated Discharge Date/Time: 03/15/25 10:00 Patient Disposition: Home, Self-Care Discharge Diagnosis: Schizophrenia Referrals: [facility] [Other] - 1 Week Referral Note: Walk in hours are; Wednesday-Wednesday 8am-8pm Please bring your insurance card, ID, and discharge paperwork with you. [facility] [Other] - 1 Week Referral Note: WALK IN HOURS ARE WEDNESDAY-WEDNESDAY 8AM-8PM, WEEKENDS HOURS ARE 9AM-5PM [facility] [Provider Group] - 1 Week Referral Note: 03-13-25 [facility] was added to patients chart. Please call [phone] to schedule a follow up appt within 7-10 days of discharge. No release or PCP on file. Discharge Medications: New omeprazole 20 mg Capsule,Delayed Release(Dr/Ec) 20 mg PO DAILY@0630 30 Days Qty: 30 0RF aripiprazole [Abilify] 20 mg Tablet 20 mg PO BEDTIME 30 Days Qty: 30 0RF Discharge Orders: Discharge Order (Routine); Ordered 03/15/25 Ordered By: Tahira Sun Diet: Regular diet Activity on Discharge: As tolerated Stand Alone Forms: Patient Portal Discharge page, Community Support Print Language: Unknown Care Plan Goals: Maintain mood and safe behaviors Take medications as prescribed Practice coping skills Continue with outpatient providers and reach out to them as needed Health Concerns: Mood stability and behaviors Plan of Treatment: Follow up with your PCP, psychiatric provider and other outpatient providers regarding above concerns Take medications as prescribed Assessment: Patient has insight and demonstrates good judgment in terms of wanting to pursue treatment. Patient has a safety plan that includes presenting to the closest ER or calling 911 if feeling unsafe. Discharge Date/Time: 03/15/25 10:18
[2025-03-15 09:41] VITALS: BMI 32.4
== END 2025-03-15 10:18 | disposition home or self-care (01) | DRG 885 ==
PROVIDERS: Admitting Provider Psychiatry & Neurology Psychiatry; Responsible Provider Registered Nurse; Visit Provider Psychiatry & Neurology Psychiatry
DX: F20.9 Schizophrenia, unspecified (principal); R45.851 Suicidal ideations; Z87.891 Personal history of nicotine dependence; Z79.899 Other long term (current) drug therapy
CPT/HCPCS: 36415; 80053; 80061; 83036

== ENCOUNTER → 2025-03-07 13:26 | Outpatient (BNV) | payer OTHER, SELFPAY | PROVIDERS: Admitting Provider Psychiatry & Neurology Psychiatry; Responsible Provider Registered Nurse; Visit Provider Nurse Practitioner Psychiatric/Mental Health | DX: F20.9 Schizophrenia, unspecified (principal); R45.851 Suicidal ideations | CPT/HCPCS: 99231; 99232 ==

== ENCOUNTER → 2025-03-07 13:26 | Outpatient (BNV) | payer MEDICAID, SELFPAY | PROVIDERS: Admitting Provider Psychiatry & Neurology Psychiatry; Responsible Provider Registered Nurse; Visit Provider Nurse Practitioner Family | DX: R45.851 Suicidal ideations (principal) | CPT/HCPCS: 99221 ==